=== PATIENT | male | born 1930 | race Caucasian/White ===

== ENCOUNTER 2017-04-06 17:24 | Inpatient (IN) ==
[2017-04-07] MEDS ORDERED: Naloxone 0.4 MG/ML INJ IVP PRN (00:20)
[2017-04-07] MEDS ORDERED: NON-FORMULARY MEDICATION 1 EACH EACH (Albuterol Sulfate [Albuterol Sulfate] 2.5 MG) IH PRN (01:34)
[2017-04-07 01:54] LABS: Basophils % 0.1 %; Hematocrit 41.8 % (37.5-50.1); Hemoglobin 12.9 g/dL (12.9-16.9); Immature Granulocytes % 0.8 % (0-4); Lymphocytes # 0.5 K/mcL (0.6-4.6); Mean Corpuscular HGB Conc 30.9 g/dL (31.6-35.5); Mean Corpuscular Hemoglobin 30.3 pg (28.0-33.3); Mean Corpuscular Volume 98.1 fL (83.0-100.0); Monocytes # 0.5 K/mcL (0.0-1.3); Monocytes % 3.5 %; Neutrophils # 14.1 K/mcL (1.6-8.9); Platelet Count 300 K/mcL (140-400); Red Blood Count 4.26 M/mcL (4.19-5.50); Red Cell Distribution Width 14.4 % (11.5-14.5); Segmented Neutrophils % 92.6 %
[2017-04-07] MEDS ORDERED: Heparin 25,000 UNIT/500 ML D5W 25,000 UNIT/500 ML MLS IVC SCH (02:00)
[2017-04-07] MEDS ORDERED: *HR* Heparin 5,000 UNIT/ML VIAL IVP PRN ×2 (02:07)
[2017-04-07] MEDS ORDERED: *HR* Heparin 5,000 UNIT/ML VIAL IVP ONE (02:07)
[2017-04-07 02:11] LABS: Albumin 3.5 g/dL (3.5-5.0); Albumin/Globulin Ratio 1.1 (1.1-2.2); Bilirubin,Total 0.4 mg/dL (0.2-1.2); Calcium 9.3 mg/dL (8.6-10.8); Globulin 3.3 g/dL (2.4-3.5); Magnesium 2.4 mg/dL (1.6-2.6); Phosphorous 3.6 mg/dL (2.3-4.7); Potassium 5.1 mEq/L (3.5-4.5); Total Protein 6.8 g/dL (6.0-8.3)
[2017-04-07] MEDS: Albuterol 2.5 MG/3 ML NEBULIZER IH PRN (02:22)
[2017-04-07] MEDS ORDERED: Vancomycin 1,500 MG in D5% in Water 250 ML IVPB SCH (03:00)
[2017-04-07] MEDS ORDERED: Vancomycin 1,750 MG in D5% in Water 500 ML IVPB ONE (03:30)
[2017-04-07] MEDS ORDERED: Vancomycin 2,000 MG in D5% in Water 500 ML IVPB ONE (03:30)
[2017-04-07] MEDS ORDERED: 0.9 % Sodium Chloride 500 ML IVC ONE (03:36)
--- NOTE | 2017-04-07 03:37 | Internal Med History&Physical ---
Date of Encounter: 04/07/17 Time of Encounter: 00:30 Assessment and Plan (1) Sepsis Current visit: Yes Status: Acute Assess: Patient presents with unresolved pneumonia. Patient currently meets sepsis criteria based on WBCs of 22.8 and HR of 114 bpm. Paatient reports increasing shortness of breath with exertion within the past 2 days and increasingly productive cough with sputum which is changed in color from yellow to orange. Patient is also tachycardic. Patient was previously treated for pneumonia one week ago after chest x-ray showed a paced sitting in the right perihilar region of his lung. Plan: IV fluids ordered Cefepime and Vancomycin ordered for broad-spectrum infection coverage Continuous cardiac telemetry ordered Lactic acid ordered Monitor patient, vital signs, and SpO2 Qualifiers: Sepsis type: sepsis due to unspecified organism Qualified Code(s): A41.9 - Sepsis, unspecified organism (2) Acute CHF (congestive heart failure) Current visit: Yes Status: Acute Assess: Patient presents with acute heart failure. Patient is currently tachycardic and to get back with lungs diminished bilaterally with expiratory wheezes. Plan: Cardiology consult ordered Echocardiogram ordered Monitor fluid overload status due to patient receiving IV fluids for sepsis. Will administer Lasix if fluid overload occurs and stop IV fluids Monitor patient closely Daily I&O Daily weight Qualifiers: Congestive heart failure type: unspecified congestive heart failure type Qualified Code(s): I50.9 - Heart failure, unspecified (3) COPD with acute exacerbation Current visit: Yes Status: Acute Assess: Patient presents with acute exacerbation of COPD. Plan: BiPap ordered nightly Supplemental O2 ordered with titration if SpO2 <92% Monitor SpO2 and vital signs Albuterol Nebs ordered DuoNebs ordered PRN 60 mg IV SoluMedrol ordered Q6 (4) Community acquired pneumonia Current visit: No Status: Acute Assess: Patient presents with unresolved pneumonia. Patient currently meets sepsis criteria based on WBCs of 22.8 and HR of 114 bpm. Paatient reports increasing shortness of breath with exertion within the past 2 days and increasingly productive cough with sputum which is changed in color from yellow to orange. Patient is also tachycardic. Patient was previously treated for pneumonia one week ago after chest x-ray showed a paced sitting in the right perihilar region of his lung. Plan: IV fluids ordered Cefepime and Vancomycin ordered for broad-spectrum infection coverage Continuous cardiac telemetry ordered Lactic acid ordered Monitor patient, vital signs, and SpO2 (5) NSTEMI (non-ST elevated myocardial infarction) Current visit: Yes Status: Acute Assess: Patient presents with NSTEMI. Plan: Heparin IV drip ordered Cardiology consult ordered Repeat EKG Continuous cardiac telemetry ordered (6) Hyperlipidemia Current visit: Yes Status: Chronic Assess: Patient presents with history of chronic hyperlipidemia. Plan: Continue Lipitor Lipid panel ordered Qualifiers: Hyperlipidemia type: unspecified Qualified Code(s): E78.5 - Hyperlipidemia , unspecified (7) Parkinsons disease Current visit: Yes Status: Chronic Assess: Patient presents with chronic Parkinson's disease. Plan: Continue Carbidopa/Levodopa (8) DVT prophylaxis Current visit: Yes Status: Acute Assess: Patient to receive DVT prophylaxis due to current cardiac symptomatology, bed rest status, and inpatient protocol. Plan: Patient placed on Heparin drip Internal Medicine - H&P: HPI Chief complaint: SOB/Unresolved pneumonia Admitted From: Hospital to Hospital Transfer Plans for Post Hospital Care: Home History of present illness: Mr. Pineda is a 86 year old male who presents from [facility] with chief complaint of increasing shortness of breath with exertion within the past 2 days and increasingly productive cough with sputum which is changed in color from yellow to orange. Patient was previously treated for pneumonia one week ago after chest x-ray showed a paced sitting in the right perihilar region of his lung. He was placed on Zithromax and steroid pack. Patient reports there was no improvement in his symptoms. Patient is also currently symptomatic for acute CHF exacerbation secondary to acute COPD exacerbation. Patient denies chest pain, fever, nausea, vomiting, chills, or syncopal episodes. Patient also reports using CPAP at night sporadically at 2 L at night. Patient has history of COPD, CAD, hyperlipidemia, hypertension, and Parkinson's disease. Patient reports bypass surgery and previous placement of 4 stents. He also reports he is a former smoker and that he has lost 30 pounds over the last 4 months due to reduced appetite. Patient currently meets sepsis criteria based on WBCs 22.8 and heart rate of [address] inpatient status protocol continuous cardiac telemetry; orders were sputum, blood, and urine cultures; cardiology consult placed an order for Echo placed. Orders for d- dimer, trending troponins 2, and heparin drip placed. Patient to receive IV cefepime and vancomycin pharmacy dosing for pneumonia coverage. Patient to be monitored closely. Past Med Surg Social Fam HX - Past Medical History Medical history: arthritis, cancer, CHF, COPD, coronary artery disease, hyperlipidemia, hypertension, kidney stones, myocardial infarction, renal disease, syncope, TIA Psychiatric history: no psych history - Past Surgical History Surgical History: angioplasty/stent, cancer surgery, cataract, coronary bypass ( CABG), LE Bypass, LE stent(s) - Social History Smoking Status: Former smoker Packs per day: 1 PPD Smokeless Tobacco Status: No Alcohol use: none Drug use: none Occupational status: retired Current living situation: Home, With Family Activity Level: Independent ambulation Recent Out of Country Travel Within the Last 8 Weeks: No Exposure or Possible Exposure to Illness During Travel: No - Family History Mother Race: Family Member Ethnicity: Non- Living Status: Age at : 70 Cause of : HD Hx Family Cardiac Disorders: Yes (HD) Father Race: Family Member Ethnicity: Non- Living Status: Age at : 79 Cause of : Complications from Alzheimer's disease Hx Family Neurologic Disorders: Yes (Alzheimer's disease) Brother Race: Family Member Ethnicity: Non- Living Status: Age at : 70 Cause of : HD Hx Family Cardiac Disorders: Yes (HD) Internal Medicine - H&P: Meds Albuterol Sulfate 2.5 mg IH Q4H PRN 04/06/17 [History] Amlodipine Besylate 5 mg PO DAILY 04/06/17 [History] Aspirin 81 mg PO DAILY 04/06/17 [History] Atorvastatin [Lipitor] 40 mg PO HS 04/06/17 [History] Budesonide [Rhinocort Allergy] 1 puff NS BID 04/06/17 [History] Carbidopa/Levodopa [Carbidopa-Levodopa 25-100 Tab] 25 - 100 mg PO QID 04/06/17 [ History] Cholecalciferol (Vitamin D3) [Vitamin D3] 5,000 unit PO DAILY 04/06/17 [History] Ipratropium [place] 2 drop NS BID 04/06/17 [History] Nitroglycerin [Nitrostat] 0.4 mg SL AD 04/06/17 [History] Potassium Citrate [Urocit-K] 10 meq PO QID 05/28/17 [History] Spironolactone [Aldactone] 25 mg PO DAILY 04/06/17 [History] Allopurinol 100 mg PO DAILY 04/07/17 [History] Allergies ciprofloxacin [From Cipro] Allergy (Verified 12/05/15 09:04) Rash fesoterodine [From Toviaz] Allergy (Verified 12/05/15 09:04) Rash ibuprofen Allergy (Verified 12/05/15 09:04) See Comments Iodinated Contrast Media - Oral and Allergy (Verified 12/06/15 15:07) Pt reports he had a heart attack after receiving IV contrast Penicillins [PCN] Allergy (Verified 12/05/15 09:04) Rash Sulfa (Sulfonamide Antibiotics) Allergy (Verified 12/05/15 09:04) Difficulty Swallowing simvastatin Adverse Reaction (Verified 12/05/15 09:04) Gastrointestinal Upset All Systems PM: A 10-system review of systems was performed and is negative for pertinent findings except as documented above in the HPI. - Constitutional Constitutional: as per HPI, weight loss (30 pounds in 4 months) - EENT Eyes: no change in vision, no discharge, no pain, no photophobia Ears: as per HPI, decreased hearing, no ear discharge, no ear pain, no tinnitus Nose, mouth and throat: no dysphagia, no nasal discharge, no neck pain, no sore throat - Breasts Breasts: as per HPI - Cardiovascular Cardiovascular ROS IM: as per HPI, dyspnea, dyspnea on exertion, irregular heart rhythm - Respiratory Respiratory: as per HPI, dyspnea, dyspnea on exertion, chest congestion, change in phlegm color - Gastrointestinal Gastrointestinal: as per HPI, diarrhea - Genitourinary Genitourinary ROS male: as per HPI - Musculoskeletal Musculoskeletal ROS IM: no numbness, no tingling - Integumentary Integumentary IM: no rash, no unusual bruising - Neurological Neurological ROS: no confusion, no convulsions, no focal weakness, no numbness, no tingling, no tremor(s) - Psychiatric Psychiatric: as per HPI, change in appetite - Endocrine Endocrine IM: as per HPI - Hematologic/Lymphatic Hematologic/Lymphatic: no easy bruising - Allergic/Immunologic Allergic/Immunologic: as per HPI - Constitutional Vitals: Temp Pulse Resp BP Pulse Ox 98.9 F 128 24 142/93 95 04/07/17 00:00 04/07/17 00:00 04/07/17 02:22 04/07/17 00:00 04/07/17 02:22 General appearance: Present: cooperative, A&O X 3, pleasant, obese, severe distress (Severe SOB and respiratory distress), answers questions appropriately - Head Head exam: Present: atraumatic, normocephalic - Eye Eye exam: Present: PERRL, conjuntiva pink, sclera anicteric Pupils: Present: PERRL - ENT ENT exam: Present: normal exam, normal external ear exam - Neck Neck exam general surgery: Present: supple, trachea midline. Absent: lymphadenopathy - Respiratory Respiratory exam: Present: accessory muscle use, respiratory distress, wheezes - Cardiovascular Cardiovascular exam: Present: tachycardia - GI/Abdominal GI/Abdominal exam: Present: normal bowel sounds, soft, no peritoneal signs. Absent: distended, tenderness - Rectal Rectal exam: Present: deferred - Additional comments: exam deferred. - Extremities Exam Extremities exam: Present: normal inspection, warm, radial pulses palpable and symetrical. Absent: calf tenderness, cyanotic, pedal edema - Back Exam Back exam: Present: normal inspection - Neurological Exam Neurological exam: Present: CN II-XII intact, oriented X3, no focal deficits. Absent: pronater drift, facial droop, speech deficit - Psychiatric Psychiatric exam: Present: anxious (Anxiety related to SOB) - Skin Skin exam: Present: diaphoretic, intact, normal color Internal Med - H&P Results - Labs CBC & Chem 7: 04/07/17 01:37 04/07/17 01:37 Labs: Short CBC 04/07/17 Range/Units 01:37 WBC 15.3 H (4.3-11.1) K/mcL Hgb 12.9 (12.9-16.9) g/dL Hct 41.8 (37.5-50.1) % Plt Count 300 (140-400) K/mcL Neutrophils # 14.1 H (1.6-8.9) K/mcL BMP 04/07/17 01:37 Sodium 139 Potassium 5.1 H Chloride 105 Carbon Dioxide 22 BUN 39 H Creatinine 1.74 H Glucose 194 H Calcium 9.3 Cardiac Enzymes 04/07/17 Range/Units 01:44 Troponin I 10.37 H* (0-0.03) ng/mL Liver Function 04/07/17 Range/Units 01:37 Total Bilirubin 0.4 (0.2-1.2) mg/dL AST 55 H (5-34) Units/L ALT 13 (0-55) Units/L Alkaline Phosphatase 59 (38-126) Units/L Albumin 3.5 (3.5-5.0) g/dL - EKG Data Rate: tachycardia - EKG Data Prior EKG available for review: yes EKG comments: 04/07/17 03:49 EKG dated 04/06/17 shows sinus tachycardia with marked right axis deviation and intraventricular conduction delay. EKG dated 04/07/17 shows ectopic atrial tachycardia with left atrial enlargement and intraventricular conduction delay. - Diagnostic Studies Other Images Additional comments: Supine view of the abdomen dated 04/06/17 shows: There is a 5 mm calcification projecting over the right kidney, unchanged. No abnormally dilated loops of large or small bowel are present to suggest obstruction. There is only mild amount of stool present. Multilevel degenerative changes are present in the lumbar spine. Overall Impression: Nonobstructed bowel-gas pattern with only small amount of stool present. Chest x-ray Additional comments: 1-View CXR of chest dated 04/06/17 shows: The mediastinal and cardiac contours are stable. There is persistent patchy right perihilar airspace opacity concerning for right perihilar pneumonia. There is no new focal consolidation or pleural effusion. No pneumothorax is identified. Overall Impression: Persistent right perihilar airspace opacity concerning for a perihilar pneumonia. Continued follow-up is recommended to ensure resolution.
[2017-04-07] MEDS ORDERED: 0.9 % Sodium Chloride 1,000 ML IVC SCH (03:45)
--- NOTE | 2017-04-07 03:45 | Event Note ---
Date of Encounter: 04/07/17 Time of Encounter: 03:40 Patient presenting with shortness of breath and cough. Reports left-sided chest pain for the last 2 days. His troponin was elevated. On exam he is in moderate distress due to shortness of breath, appears tachipneic, heart auscultation reveals tachycardic regular S1 and S2. Lungs are diminished bilaterally with expiratory wheezes. Plan: For severe sepsis we will treat him with IV fluids and broad-spectrum IV antibiotics. Source is likely pneumonia. For non-ST elevation WI we will start heparin drip. We will obtain echocardiogram. Consult cardiology. 4 respiratory failure based on hypoxia and tachypnea will use BiPAP. For COPD we will provide inhaled albuterol and ipratropium, IV steroids and antibiotics. The patient is highly unstable and there is high probability of emergent and significant clinical decompensation with potential impairment of organ function including cardiovascular system and respiratory system due to severe sepsis and acute WI. I have spent 40 minutes of critical care time which involved decision making of high complexity to assess, manipulate, and support vital organ system , in order to prevent further life threatening deterioration of the patient's condition. The critical care time was spent in the patient's room or its direct vicinity and was spent obtaining history and examining the patient, reviewing EKGs, imaging studies and laboratory data, ordering medications and laboratory studies, reevaluating for clinical response and making adjustments to ordered medications.
[2017-04-07] MEDS: Cefepime HCl 2,000 MG in D5% in Water (Mini-Bag+) 100 ML IVPB SCH (03:46)
[2017-04-07] MEDS: Ipratropium/Albuterol Neb 3 ML IH SCH ×6 (04:39→23:29)
[2017-04-07] MEDS: Nitroglycerin 0.4 MG TAB.SUBL SL SCH (04:43)
[2017-04-07] MEDS ORDERED: methylPREDNISolone 125 MG/2 ML VIAL IVP SCH (06:00)
[2017-04-07 07:40] LABS: Hematocrit 37.9 % (37.5-50.1); Hemoglobin 12.3 g/dL (12.9-16.9); Mean Corpuscular HGB Conc 32.5 g/dL (31.6-35.5); Mean Corpuscular Volume 95.5 fL (83.0-100.0); Platelet Count 311 K/mcL (140-400); Red Blood Count 3.97 M/mcL (4.19-5.50); Red Cell Distribution Width 14.3 % (11.5-14.5)
[2017-04-07] MEDS ORDERED: Perflutren Lipid Microsphere 1.3 ML in 0.9 % Sodium Chloride 8.7 ML IVP ONE (08:33)
[2017-04-07] MEDS ORDERED: Levofloxacin 750 MG/150 ML 750 MG/150 ML BAG IVPB SCH (09:00)
[2017-04-07] MEDS ORDERED: IPRATROPIUM BROMIDE NS SCH (09:00)
[2017-04-07] MEDS ORDERED: Spironolactone 25 MG TABLET PO SCH (09:00)
[2017-04-07] MEDS ORDERED: amLODIPine 5 MG TABLET PO SCH (09:00)
[2017-04-07] MEDS: Pantoprazole 40 MG VIAL IVP SCH (09:59)
[2017-04-07] MEDS: 0.9 % Sodium Chloride 1,000 ML IVC SCH (10:05)
--- NOTE | 2017-04-07 10:08 | Cardiology Consult Note ---
<Judy Poonra Hough - Last Filed: 04/07/17 10:47> Date of Encounter: 04/07/17 Time of Encounter: 08:30 Assessment and Plan (1) NSTEMI (non-ST elevated myocardial infarction) Current Visit: Yes Status: Acute Troponin 2.46, 10.37, 17.3. Ischemic ECG changes. Typical chest pain symptoms for the past 1+ week. TTE 04/07/17: LVEF 15-20%, severe global hypokinesis with regional variations, mild to moderate MR, mild TR, moderate PH. No prior echo for review. Hx of 3v CABG in 1993, most recent (confirmed) in 2001 with PCI to RCA. Long discussion with patient regarding plan given DNR/DNI. He desires to first discuss with family with regards to LHC. Risks for ANTWAN increased given his CKD, Nephrology consulted. Recommend supportive care for PNA with IV antibiotics and treatment of CHF-- will stop IVF, await Nephrology recommendations for diuresis. Continue medical management for now--continue IV heparin gtt, Stop CCB, start betablocker. No ACEi/ARB due to BRENDAN on CKD. Cardiac rehab not indicated at this time. Will continue to follow closely. (2) Acute CHF (congestive heart failure) Current Visit: Yes Status: Acute Severely reduced systolic function, LVEF 15-20%. Chronicity unclear. No prior records available for review. Mild volume overload upon exam--will stop supplemental IVF. Stop CCB, start Toprol XL. No ACEi/ARB due to CKD. Await Nephrology recommendations on diuresis. Plan as above, patient to discuss with family prior to proceeding with [facility]. Continue medical management for now. Strict I&Os, Na/Fluid restriction diet, daily weights. Qualifiers: Congestive heart failure type: systolic Qualified Code(s): I50.21 - Acute systolic (congestive) heart failure (3) Sepsis Current Visit: Yes Status: Acute Secondary to CAP. WBC 22 upon admission. CXR ([place]): persistent right perihilar airspace opacity consistent with PNA. On IV antibiotics, vanco and ceftin. Primary service following. Qualifiers: Sepsis type: sepsis due to unspecified organism Qualified Code(s): A41.9 - Sepsis, unspecified organism (4) BRENDAN (acute kidney injury) Current Visit: Yes Status: Acute SCr 1.74 today. BRENDAN on CKD. Baseline line SCr 1.3-1.5. Hx of CKD-3, follows with Dr. Watkins. Consulted [facility] for recommendations regarding LHC and diuresis. Discussion w patient/family: The assessment and plan as outlined above was discussed with the patient and/or family members who expressed understanding and agreement. All questions were answered. Thank you for involving us in the care of your patient. Please call with any questions. The patient will be discussed and reviewed with Dr. Irwin; changes to be made accordingly. History of Present Illness Consult date: 04/07/17 Requesting physician: Baldo Javed Consult reason: NSTEMI Chief complaint: Chest pain History of present illness: Mr. Pineda is a 86 year old male with PMH significant for CAD s/p 3v CABG ( 1993) and subsequent PCI, PAD, COPD on home o2, Parkinson's disease, LISETTE, HTN, CKD-3, HLD, and TIA who presented to [place] ED with complaints of worsening shortness of breath and chest discomfort. Initial troponin was 2.46--patient was then transferred to [facility]. He reports he was diagnosed with pneumonia on by PCP--was started on oral steroids and antibiotics; symptoms continued to worsen over the week. Reports 1 week history of chest "tightness" and squeezing associated with dyspnea and diaphoresis; symptoms worsen with minimal exertion and improve with rest/NTG tabs. Also reports frequent, fatigue/ malaise, and productive cough with discolored sputum production. No recent or past cardiac records available for review. He followed with [facility] ([place], [place]) in the past. Last confirmed LHC was in 2001 with PCI to RCA (per stent card). He denies recent cardiac work-up. Past Med Surg Social Fam HX - Past Medical History Medical history: arthritis, cancer, COPD, coronary artery disease, hyperlipidemia, hypertension, kidney stones, myocardial infarction, renal disease, syncope, TIA Psychiatric history: no psych history - Past Surgical History Surgical History: angioplasty/stent, cancer surgery, cataract, coronary bypass ( CABG), LE Bypass, LE stent(s) - Social History Smoking Status: Former smoker Packs per day: 1 PPD Smokeless Tobacco Status: No Alcohol use: none Drug use: none - Family History Mother Race: Family Member Ethnicity: Non- Living Status: Age at : 70 Cause of : HD Hx Family Cardiac Disorders: Yes (HD) Father Race: Family Member Ethnicity: Non- Living Status: Age at : 79 Cause of : Complications from Alzheimer's disease Hx Family Neurologic Disorders: Yes (Alzheimer's disease) Brother Race: Family Member Ethnicity: Non- Living Status: Age at : 70 Cause of : HD Hx Family Cardiac Disorders: Yes (HD) Medications and Allergies Albuterol Sulfate 2.5 mg IH Q4H PRN 04/06/17 [History] Amlodipine Besylate 5 mg PO DAILY 04/06/17 [History] Aspirin 81 mg PO DAILY 04/06/17 [History] Atorvastatin [Lipitor] 40 mg PO HS 04/06/17 [History] Budesonide [Rhinocort Allergy] 1 spray NS BID 04/06/17 [History] Carbidopa/Levodopa [Carbidopa-Levodopa 25-100 Tab] 1 tab PO QID 04/06/17 [ History] Cholecalciferol (Vitamin D3) [Vitamin D3] 5,000 unit PO DAILY 04/06/17 [History] Ipratropium [place] 2 spray NS BID 04/06/17 [History] Nitroglycerin [Nitrostat] 0.4 mg SL AD 04/06/17 [History] Potassium Citrate [Urocit-K] 10 meq PO QID 04/06/17 [History] Spironolactone [Aldactone] 25 mg PO DAILY 04/06/17 [History] Allopurinol [Zyloprim 100 MG] 100 mg PO DAILY 04/07/17 [History] Azithromycin [Azithromycin 6-Tab Pack] 250 mg PO PER PKG DI 04/07/17 [History] Allergies ciprofloxacin [From Cipro] Allergy (Verified 12/05/15 09:04) Rash fesoterodine [From Toviaz] Allergy (Verified 12/05/15 09:04) Rash ibuprofen Allergy (Verified 12/05/15 09:04) See Comments Iodinated Contrast Media - Oral and Allergy (Verified 12/06/15 15:07) Pt reports he had a heart attack after receiving IV contrast Penicillins [PCN] Allergy (Verified 12/05/15 09:04) Rash Sulfa (Sulfonamide Antibiotics) Allergy (Verified 12/05/15 09:04) Difficulty Swallowing simvastatin Adverse Reaction (Verified 12/05/15 09:04) Gastrointestinal Upset All Systems Review: A 10-system review of systems was performed and is negative for pertinent findings except as documented above in the HPI. - Cardiovascular Cardiovascular: as per HPI Physical Examination Vital Signs, Last 4 Hours Temp Pulse Resp BP Pulse Ox 04/07/17 09:57 120/82 04/07/17 07:29 97.3 F L 99 14 116/78 96 General: Conversant, Other (appears chronically ill) HEENT: Atraumatic, Normocephaly Cardiac: Reg Rate and Rhythm (tachycardiac) Lungs: Other (Diminished throughout) Neuro: Alert and responsive Abdomen: Soft Skin: No rashes noted on visualized skin Extremities: Other (mild BLE edema) Results 04/07/17 07:02 04/07/17 01:37 Lab Results 04/07/17 04/07/17 04/07/17 01:37 01:37 01:37 WBC 15.3 H Hgb 12.9 Hct 41.8 Plt Count 300 APTT D-Dimer Sodium 139 Potassium 5.1 H Chloride 105 Carbon Dioxide 22 BUN 39 H Creatinine 1.74 H Glucose 194 H Calcium 9.3 Magnesium 2.4 Total Bilirubin 0.4 AST 55 H ALT 13 Alkaline Phosphatase 59 Troponin I B-Natriuretic Peptide 1500 H 04/07/17 04/07/17 04/07/17 01:44 01:44 01:55 WBC Hgb Hct Plt Count APTT 30.0 D-Dimer 543 H Sodium Potassium Chloride Carbon Dioxide BUN Creatinine Glucose Calcium Magnesium Total Bilirubin AST ALT Alkaline Phosphatase Troponin I 10.37 H* B-Natriuretic Peptide 04/07/17 04/07/17 04/07/17 07:02 07:02 09:46 WBC 15.3 H Hgb 12.3 L Hct 37.9 Plt Count 311 APTT 101.8 H D D-Dimer Sodium Potassium Chloride Carbon Dioxide BUN Creatinine Glucose Calcium Magnesium Total Bilirubin AST ALT Alkaline Phosphatase Troponin I 17.30 H* B-Natriuretic Peptide Active Medications Albuterol Sulfate (Proventil Neb) 2.5 mg IH [id number] PRN; Protocol PRN Reason: Shortness Of Breath/Wheezing Stop: 10/07/17 01:45 Last Admin: 04/07/17 02:22 Dose: 2.5 mg Albuterol/Ipratropium (Duoneb) 3 ml IH [id number] ROBERT PRN Reason: Protocol Stop: 10/07/17 04:01 Last Admin: 04/07/17 07:45 Dose: Not Given Allopurinol (Zyloprim) 100 mg PO DAILY [facility] Stop: 10/07/17 09:01 Amlodipine Besylate (Norvasc) 5 mg PO DAILY ROBERT Stop: 10/07/17 09:01 Atorvastatin Calcium (Lipitor) 40 mg PO HS [facility] Stop: 10/07/17 21:01 Carbidopa/Levodopa (Sinemet) 1 each PO QID ROBERT Stop: 10/07/17 09:01 Fluticasone Propionate (Flonase) 50 mcg NS BID ROBERT Stop: 10/07/17 09:01 Heparin Sodium (Porcine) (Heparin) 4,000 unit IVP Q6HR PRN PRN Reason: SEE COMMENTS Stop: 10/07/17 02:08 Heparin Sodium (Porcine) (Heparin) 2,000 unit IVP Q6H PRN PRN Reason: SEE COMMENTS Stop: 10/07/17 02:08 Heparin Sodium/Dextrose (Heparin 25,000 Unit/500 Ml D5w) 25,000 unit in 500 mls @ 19.996 mls/hr IVC .Q24H ROBERT; 10.58 UNIT/KG/HR PRN Reason: Protocol Stop: 10/07/17 02:01 Last Admin: 04/07/17 03:36 Dose: 10.58 unit/kg/hr, 20 mls/hr Cefepime HCl 2,000 mg/ (Dextrose) 100 mls @ 200 mls/hr IVPB Q24H [facility] Stop: 10/07/17 03:01 Last Admin: 04/07/17 03:46 Dose: 200 mls/hr Vancomycin HCl 1,500 mg/ (Dextrose) 250 mls @ 166.67 mls/hr IVPB Q24H [facility] Stop: 10/08/17 04:01 Sodium Chloride (0.9 % Sodium Chloride) 1,000 mls @ 125 mls/hr IVC .Q8H ROBERT Stop: 04/07/17 19:44 Last Admin: 04/07/17 04:44 Dose: 125 mls/hr Methylprednisolone (Solu-Medrol) 60 mg IVP Q6HR [facility] Stop: 10/07/17 06:01 Last Admin: 04/07/17 08:05 Dose: 60 mg Naloxone HCl (Narcan) 0.4 mg IVP Q2MIN PRN PRN Reason: Opioid Reversal Stop: 10/07/17 00:21 Nitroglycerin (Nitroglycerin) 0.4 mg SL AD [facility] Stop: 10/07/17 01:46 Last Admin: 04/07/17 04:43 Dose: Not Given Ondansetron HCl (Zofran) 4 mg IVP Q8HR PRN PRN Reason: Nausea And Vomiting Stop: 10/07/17 00:21 Pantoprazole Sodium (Protonix) 40 mg IVP DAILY@0730 [facility] Stop: 10/07/17 07:31 Last Admin: 04/07/17 09:59 Dose: 40 mg Vitamin D (Vitamin D) 1,000 unit PO DAILY [facility] Stop: 10/07/17 09:01 - Imaging and Cardiology Chest Xray: report reviewed Echo: pending Other Results: 12 hour tele: avg HR-106 SR. max 4 beats NSVT. - EKG Interpretation EKG results cardiology: personally reviewed Consult Discharge Plan - Plan Additional Instructions: pcp requested Referrals: Mildred Chu MD [Primary Care Provider] - <Nicolasa Iriwn - Last Filed: 04/07/17 13:01> Date of Encounter: 04/07/17 Assessment and Plan Discussion w patient/family: The assessment and plan as outlined above was discussed with the patient and/or family members who expressed understanding and agreement. All questions were answered. Thank you for involving us in the care of your patient. Please call with any questions. History of Present Illness History of present illness: Mr. Pineda is a 86 year old male All Systems Review: A 10-system review of systems was performed and is negative for pertinent findings except as documented above in the HPI. Physical Examination Vital Signs, Last 4 Hours Temp Pulse Resp BP Pulse Ox 04/07/17 10:44 97.3 F L 110 18 124/81 95 04/07/17 09:57 120/82 Results 04/07/17 12:36 04/07/17 01:37 Lab Results 04/07/17 04/07/17 04/07/17 01:37 01:37 01:37 WBC 15.3 H Hgb 12.9 Hct 41.8 Plt Count 300 APTT D-Dimer Sodium 139 Potassium 5.1 H Chloride 105 Carbon Dioxide 22 BUN 39 H Creatinine 1.74 H Glucose 194 H Calcium 9.3 Magnesium 2.4 Total Bilirubin 0.4 AST 55 H ALT 13 Alkaline Phosphatase 59 Troponin I B-Natriuretic Peptide 1500 H 04/07/17 04/07/17 04/07/17 01:44 01:44 01:55 WBC Hgb Hct Plt Count APTT 30.0 D-Dimer 543 H Sodium Potassium Chloride Carbon Dioxide BUN Creatinine Glucose Calcium Magnesium Total Bilirubin AST ALT Alkaline Phosphatase Troponin I 10.37 H* B-Natriuretic Peptide 04/07/17 04/07/17 04/07/17 07:02 07:02 09:46 WBC 15.3 H Hgb 12.3 L Hct 37.9 Plt Count 311 APTT 101.8 H D D-Dimer Sodium Potassium Chloride Carbon Dioxide BUN Creatinine Glucose Calcium Magnesium Total Bilirubin AST ALT Alkaline Phosphatase Troponin I 17.30 H* B-Natriuretic Peptide 04/07/17 12:36 WBC Hgb 13.1 Hct 41.4 Plt Count APTT D-Dimer Sodium Potassium Chloride Carbon Dioxide BUN Creatinine Glucose Calcium Magnesium Total Bilirubin AST ALT Alkaline Phosphatase Troponin I B-Natriuretic Peptide - Attending Attestation I examined this patient and my medical decision-making was reviewed with the EQUIPMENT SERVICES ASSOCIATE/PA/Advanced Practice Nurse/Resident Physician. I agree with the documented findings, disposition and treatment plan. I examined this patient and my medical decision-making was reviewed with the EQUIPMENT SERVICES ASSOCIATE/PA/Advanced Practice Nurse/Resident Physician. I agree with the documented findings, disposition and treatment plan. Mr. Pineda presents with SOB probably multifactorial and in part related to pneumonia that was recently diagnosed and treated as an outpatient. However , his troponin has markedly elevated and echo demonstrates severe reduction of LV systolic function. He does report chest tightness associated with dyspnea. There are nonspecific ECG changes with worsening of QRS duration suggestive of BBB. We discussed these findings with the patient. Ideally would recommend a [facility]. However, he appears alert, mainly appropriate in response but somewhat confused during our conversation and there is concern for a septic picture. I would also appreciate Nephrology's evaluation given presence of CKD. I explained to the patient that he would be at risk for worsened kidney function if we proceed with cath. He would like to discuss this with his daughter's and consider a decision. For now, I agree with anticoagulation. We will stop IVF' s and begin heart failure therapy.
[2017-04-07] MEDS: Fluticasone Propionate Nasal 50 MCG/SPRAY BOTTLE NS SCH ×2 (10:22→20:11)
[2017-04-07] MEDS: Carbidopa/Levodopa 25/100 TABLET PO SCH ×4 (10:22→20:09)
[2017-04-07] MEDS: Cholecalciferol (D-3) 1,000 UNIT TABLET PO SCH (10:22)
--- NOTE | 2017-04-07 10:32 | Internal Med Progress Note ---
<Roman Ferreira - Last Filed: 04/07/17 13:12> Date of Encounter: 04/07/17 Time of Encounter: 08:30 - Assessment and plan (1) Acute respiratory failure with hypoxia Current Visit: Yes Status: Acute Assessment and plan: - Presented with shortness of breath requiring 4L of oxygen compared to occasional 2L home oxygen use, mostly at nighttime with CPAP. - Likely secondary to pneumonia in the setting of COPD but cannot completely exclude underlying pulmonary edema given significant systolic heart failure per echo. - Will obtain ABG for further evaluation. - Does not feel this is COPD exacerbation. Will switch from Solu-Medrol to prednisone while continuing bronchodilators and supplemental oxygen. - Okay to use BiPAP as needed. - Continue IV antibiotics for pneumonia. - Closely monitor with bedside oximetry. (2) Sepsis Current Visit: Yes Status: Acute Assessment and plan: - 2 SIRS criteria (WBC 22.8 & HR 114) with lactic acidosis at 3.3. - Likely secondary to pneumonia. - Was on IV NS but now discontinued given the new finding of acute systolic heart failure with LVEF 15-20%. - Continue IV antibiotics. - Closely monitor. Qualifiers: Sepsis type: sepsis due to unspecified organism Qualified Code(s): A41.9 - Sepsis, unspecified organism (3) NSTEMI (non-ST elevated myocardial infarction) Current Visit: Yes Status: Acute Assessment and plan: - Presented with one-week history of chest pain with elevated troponin (2.46, 10.37, 17.30) and nonspecific EKG changes suggestive of BBB. - Known CAD s/p 3V CABG in 1993 with PCI to RCA in 2001. - ERICK on 04/07/17 found LVEF 15-20% with severe global hypokinesis with regional variations but indeterminate LV diastolic function. - Heparin drip has been discontinued at this time given reported hemoptysis. - Cardiology had long discussion with patient regarding possible cardiac cath. Patient likes to discuss with his family first before making final decision. - Continue medical management including aspirin, beta-eun, statin and nitroglycerin. - Closely monitor with telemetry. (4) Acute CHF (congestive heart failure) Current Visit: Yes Status: Acute Assessment and plan: - ERICK on 04/07/17 found LVEF 15-20% with severe global hypokinesis with regional variations but indeterminate LV diastolic function. - Patient does not appear significantly fluid overloaded at this time. - Cardiology on board and recommends discontinuation of CCB and start Toprol XL. No ACEi/ARB given current BRENDAN on CKD. Appreciate cardiology assistance on CHF management. - Also appreciate nephrology recommendations regarding diuresis. - Discontinue IV fluid for now. - Strict I/O and daily weight. Qualifiers: Congestive heart failure type: systolic Qualified Code(s): I50.21 - Acute systolic (congestive) heart failure (5) Community acquired pneumonia Current Visit: No Status: Acute Assessment and plan: - 2-day history of worsening shortness of breath and cough with occasional yellow/orange sputum production. - CXR on 04/06/17 at [place] ED showed persistent right perihilar airspace opacity concerning of right perihilar pneumonia. - Patient has no clinical improvement while on outpatient azithromycin for a week. The failure to response indicates the need of hospitalization & IV antibiotics. - Sputum culture and blood cultures pending. - Will check urine antigens for Legionella & Strep. pneumoniae. - Continue IV vancomycin (since 04/07) and cefepime (since 04/07) for broad- spectrum coverage. Will de-escalate later based on clinical findings and/or culture results. (6) Acute on chronic renal failure Current Visit: Yes Status: Acute Assessment and plan: - SCr 1.74 & eGFR 37 on admission compared to his baseline (SCr ~1.3 & eGFR ~45) - Likely secondary to sepsis and associated hypovolemia. - Patient of Dr. Watkins and [facility] has been consulted for possible contrast exposure if patient gets cardiac cath. Appreciate nephrology input. - Avoid nephrotoxin. - IV fluid has been held at this time given current systolic heart failure with LVEF 15-20%. - Closely monitor renal function and electrolytes. - Subjective Interval history: This note is NOT for billing purpose. Patient was seen and examined this morning. Patient reports breathing and nonproductive cough better. Patient states having some episodes of diaphoresis but no chest pain/discomfort, syncope, palpitation or worsening edema. Patient denies fever, chills, nausea, vomiting, abdominal pain. Patient reports having some diarrhea prior to admission but his last bowel movement was 2 days ago. - Constitutional Vitals: Temp Pulse Resp BP Pulse Ox 97.3 F L 99 14 120/82 96 04/07/17 07:29 04/07/17 07:29 04/07/17 07:29 04/07/17 09:57 04/07/17 07:29 General appearance: Present: cooperative, A&O X 3, pleasant, obese, severe distress (Severe SOB and respiratory distress), answers questions appropriately - Head Head exam: Present: atraumatic, normocephalic - Eye Eye exam: Present: EOMI, PERRL, conjuntiva pink, sclera anicteric - Neck Neck exam general surgery: Present: supple, trachea midline. Absent: lymphadenopathy - Respiratory Respiratory exam: Present: decreased breath sounds. Absent: accessory muscle use, rales, rhonchi, wheezes - Cardiovascular Cardiovascular exam: Present: +S1, +S2, tachycardia. Absent: diastolic murmur, gallop, rubs, systolic murmur - GI/Abdominal GI/Abdominal exam: Present: normal bowel sounds, soft, no peritoneal signs. Absent: distended, tenderness - Extremities Exam Extremities exam: Present: pedal edema (Mild BLE edema), warm, radial pulses palpable and symetrical. Absent: calf tenderness, cyanotic - Neurological Exam Neurological exam: Present: CN II-XII intact, oriented X3, no focal deficits. Absent: pronater drift, facial droop, speech deficit - Skin Skin exam: Present: dry, intact, warm Internal Medicine: Result - Labs CBC & Chem 7: 04/07/17 12:36 04/07/17 01:37 Labs: Short CBC 04/07/17 04/07/17 Range/Units 01:37 07:02 WBC 15.3 H 15.3 H (4.3-11.1) K/mcL Hgb 12.9 12.3 L (12.9-16.9) g/dL Hct 41.8 37.9 (37.5-50.1) % Plt Count 300 311 (140-400) K/mcL Neutrophils # 14.1 H (1.6-8.9) K/mcL BMP 04/07/17 01:37 Sodium 139 Potassium 5.1 H Chloride 105 Carbon Dioxide 22 BUN 39 H Creatinine 1.74 H Glucose 194 H Calcium 9.3 Cardiac Enzymes 04/07/17 04/07/17 Range/Units 01:44 07:02 Troponin I 10.37 H* 17.30 H* (0-0.03) ng/mL Liver Function 04/07/17 Range/Units 01:37 Total Bilirubin 0.4 (0.2-1.2) mg/dL AST 55 H (5-34) Units/L ALT 13 (0-55) Units/L Alkaline Phosphatase 59 (38-126) Units/L Albumin 3.5 (3.5-5.0) g/dL - ABG Interpretation ABG results: PT/INR, D-dimer D-Dimer 543 ng/mLFEU (0-500) H 04/07/17 01:44 Consult Discharge Plan - Plan Additional Instructions: pcp requested Referrals: Mildred Chu MD [Primary Care Provider] - <Matthias Vaca P - Last Filed: 04/07/17 16:51> Date of Encounter: 04/07/17 - Constitutional Vitals: Temp Pulse Resp BP Pulse Ox 96.1 F L 98 16 118/83 99 04/07/17 15:54 04/07/17 15:54 04/07/17 15:54 04/07/17 15:54 04/07/17 15:54 Internal Medicine: Result - Labs CBC & Chem 7: 04/07/17 12:36 04/07/17 01:37 Labs: Short CBC 04/07/17 04/07/17 04/07/17 Range/Units 01:37 07:02 12:36 WBC 15.3 H 15.3 H (4.3-11.1) K/mcL Hgb 12.9 12.3 L 13.1 (12.9-16.9) g/dL Hct 41.8 37.9 41.4 (37.5-50.1) % Plt Count 300 311 (140-400) K/mcL Neutrophils # 14.1 H (1.6-8.9) K/mcL BMP 04/07/17 01:37 Sodium 139 Potassium 5.1 H Chloride 105 Carbon Dioxide 22 BUN 39 H Creatinine 1.74 H Glucose 194 H Calcium 9.3 Cardiac Enzymes 04/07/17 04/07/17 Range/Units 01:44 07:02 Troponin I 10.37 H* 17.30 H* (0-0.03) ng/mL Liver Function 04/07/17 Range/Units 01:37 Total Bilirubin 0.4 (0.2-1.2) mg/dL AST 55 H (5-34) Units/L ALT 13 (0-55) Units/L Alkaline Phosphatase 59 (38-126) Units/L Albumin 3.5 (3.5-5.0) g/dL - ABG Interpretation ABG results: ABG ABG pH 7.41 pH Units (7.32-7.45) 04/07/17 15:38 ABG pCO2 37 mmHg (35-45) 04/07/17 15:38 ABG pO2 98 mmHg (85-104) 04/07/17 15:38 ABG O2 Saturation 98 % (95-98) 04/07/17 15:38 PT/INR, D-dimer D-Dimer 543 ng/mLFEU (0-500) H 04/07/17 01:44 - Attending Attestation I examined this patient and my medical decision-making was reviewed with the SENIOR MOBILE APPLICATION DEVELOPER/PA/Advanced Practice Nurse/Resident Physician. I agree with the documented findings, disposition and treatment plan as described except to the extent set forth below. 86/M Background history of multiple medical issues, Admitted with non-ST elevation myocardial infarction with severe acute systolic congestive heart failure. 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 Patient was evaluated by cardiology/nephrology and their recommendations appreciated. I had a long discussion with patient's 2 daughters, patient's , patient's stepson and patient's son-in-law. During my discussion with family WANDA Barboza was present. Total duration of discussion/questions and answers with family: 40 minutes. During this discussion I explained them about recommendations from cardiology/ nephrology. I have personally discussed the plan with interventional cardiology before the discussion and relayed his message to family. I have discussed risks, benefits, advantages, disadvantages and alternative options of worsening status and possible interventions. All above discussed again with the patient in the room in front of all family member. Patient/family members came to conclusion that they prefer to keep the current CODE STATUS.
[2017-04-07] MEDS: Metoprolol XL (24 HR) Succ 25 MG TAB.ER.24H PO SCH (11:02)
[2017-04-07 12:45] LABS: Hematocrit 41.4 % (37.5-50.1); Hemoglobin 13.1 g/dL (12.9-16.9)
[2017-04-07] MEDS: Aspirin 81 MG TAB.CHEW PO SCH (13:49)
[2017-04-07 15:47] LABS: ABG Base Excess -0.8 mEq/L (-2.0 to 3.0); ABG HCO3 23.5 mEQ/L (21-27); ABG Oxygen Saturation 98 % (95-98); ABG PCO2 37 mmHg (35-45); ABG PH 7.41 pH Units (7.32-7.45); ABG PO2 98 mmHg (85-104); ABG TCO2 24.6 mEq/L (20-26); Blood Gas FiO2 35 %
--- NOTE | 2017-04-07 16:16 | Nephrology Consult Note ---
Date of Encounter: 04/07/17 Time of Encounter: 14:00 Assessment and Plan (1) BRENDAN (acute kidney injury) Current Visit: Yes Status: Acute Elevated SCr in the setting of respiratory distress with PNA, NSTEMI, CHF, COPD Agree with holding any additional fluids for now No significant evidence of overt fluid overload but given current state, a dose of iv lasix is not unreasonable Agree with holding aldactone for now given hyperkalemia Will start mucomyst for possible LHC soon if stable (2) CKD (chronic kidney disease) stage 3, GFR 30-59 ml/min Current Visit: Yes Status: Acute baseline SCr around 1.2 to 1.4 (3) NSTEMI (non-ST elevated myocardial infarction) Current Visit: Yes Status: Acute WIll hold off on any intervention except on an emergent basis given BRENDAN Will discuss with pt when in better condition to talk (4) Community acquired pneumonia Current Visit: Yes Status: Acute Antibiotics per primary team History of Present Illness - Reason for Consult Consult date: 04/07/17 Acute Kidney Injury, Chronic Kidney Disease Requesting physician: April Poon - History of Present Illness 86 y o male with PMH of HTN, hig chol, CAD s/p CABG, stents and stage 3 CKD well known to me from outpatient management admitted with progressive SOB and chest discomfort as a transfer from [place]. He was noted to have NSTEMI with elevated troponin peaking at 17.3, new CHF with EF around 15-20% along with PNA. Renal consulted as SCr noted elevated at 1.7, baseline typically around 1.2-1.4. Pt seen and examined visibly SOB with biPAP in place. Past Med Surg Social Fam HX - Past Medical History Medical history: arthritis, cancer, COPD, coronary artery disease, hyperlipidemia, hypertension, kidney stones, myocardial infarction, renal disease, syncope, TIA Psychiatric history: no psych history - Past Surgical History Surgical History: angioplasty/stent, cancer surgery, cataract, coronary bypass ( CABG), LE Bypass, LE stent(s) - Social History Smoking Status: Former smoker Packs per day: 1 PPD Smokeless Tobacco Status: No Alcohol use: none Drug use: none - Family History Mother Race: Family Member Ethnicity: Non- Living Status: Age at : 70 Cause of : HD Hx Family Cardiac Disorders: Yes (HD) Father Race: Family Member Ethnicity: Non- Living Status: Age at : 79 Cause of : Complications from Alzheimer's disease Hx Family Neurologic Disorders: Yes (Alzheimer's disease) Brother Race: Family Member Ethnicity: Non- Living Status: Age at : 70 Cause of : HD Hx Family Cardiac Disorders: Yes (HD) Medications and Allergies Albuterol Sulfate 2.5 mg IH Q4H PRN 04/06/17 [History] Amlodipine Besylate 5 mg PO DAILY 04/06/17 [History] Aspirin 81 mg PO DAILY 04/06/17 [History] Atorvastatin [Lipitor] 40 mg PO HS 04/06/17 [History] Budesonide [Rhinocort Allergy] 1 spray NS BID 04/06/17 [History] Carbidopa/Levodopa [Carbidopa-Levodopa 25-100 Tab] 1 tab PO QID 04/06/17 [ History] Cholecalciferol (Vitamin D3) [Vitamin D3] 5,000 unit PO DAILY 04/06/17 [History] Ipratropium [place] 2 spray NS BID 04/06/17 [History] Nitroglycerin [Nitrostat] 0.4 mg SL AD 04/06/17 [History] Potassium Citrate [Urocit-K] 10 meq PO QID 04/06/17 [History] Spironolactone [Aldactone] 25 mg PO DAILY 04/06/17 [History] Allopurinol [Zyloprim 100 MG] 100 mg PO DAILY 04/07/17 [History] Azithromycin [Azithromycin 6-Tab Pack] 250 mg PO PER PKG DI 04/07/17 [History] Allergies ciprofloxacin [From Cipro] Allergy (Verified 12/05/15 09:04) Rash fesoterodine [From Toviaz] Allergy (Verified 12/05/15 09:04) Rash ibuprofen Allergy (Verified 12/05/15 09:04) See Comments Iodinated Contrast- Oral and IV Dye Allergy (Verified 12/06/15 15:07) Pt reports he had a heart attack after receiving IV contrast Penicillins [PCN] Allergy (Verified 12/05/15 09:04) Rash Sulfa (Sulfonamide Antibiotics) Allergy (Verified 12/05/15 09:04) Difficulty Swallowing simvastatin Adverse Reaction (Verified 12/05/15 09:04) Gastrointestinal Upset Review of Systems All Systems: reviewed and no additional remarkable complaints except as stated ( 10 systems reviewed) Exam - Vital Signs Vital signs: Initial Vital Signs Temp Pulse Resp BP Pulse Ox 97.5 F L 115 24 138/86 93 04/06/17 19:35 04/06/17 19:35 04/06/17 19:35 04/06/17 19:35 04/06/17 19:35 Vital Signs - Last 8 Hours Temp Pulse Resp BP Pulse Ox 04/07/17 15:54 96.1 F L 98 16 118/83 99 04/07/17 10:44 97.3 F L 110 18 124/81 95 04/07/17 09:57 120/82 Intake and Output 04/07/17 04/07/17 04/07/17 07:59 15:59 23:59 Intake Total 240 / 240 Output Total 175 / 175 Balance 65 / 65 Intake: Oral 240 / 240 Output: Urine 175 / 175 Other: Meal Lunch Percent of Meal Consumed 85% Weight 94.5 kg Patient Weight 04/07/17 23:59 Weight 94.5 kg - General Appearance General appearance: moderate distress, frail EENT: ATNC, mucous membranes moist Neck: no JVD, supple Respiratory: course breath sounds Cardiology: no edema, normal S1, normal S2 Gastrointestinal: no tenderness, no guarding Integumentary: warm and dry Neurologic: no focal deficit Musculoskeletal: no deformities Psychiatric: mood/affect appropriate, cooperative Results - Lab Results 04/10/17 04:36 04/10/17 04:36 Most recent lab results ABG pH 7.41 pH Units (7.32-7.45) 04/07/17 15:38 ABG pCO2 37 mmHg (35-45) 04/07/17 15:38 ABG pO2 98 mmHg (85-104) 04/07/17 15:38 ABG HCO3 23.5 mEQ/L (21-27) 04/07/17 15:38 ABG O2 Saturation 98 % (95-98) 04/07/17 15:38 Calcium 9.3 mg/dL (8.6-10.8) 04/07/17 01:37 Phosphorus 3.6 mg/dL (2.3-4.7) 04/07/17 01:37 Magnesium 2.4 mg/dL (1.6-2.6) 04/07/17 01:37 Consult Discharge Plan - Plan Additional Instructions: pcp requested Referrals: Mildred Chu MD [Primary Care Provider] -
[2017-04-07] MEDS ORDERED: Furosemide 40 MG/4 ML VIAL IVP ONE (16:27)
[2017-04-07 18:28] LABS: Bilirubin,Urine Negative (Negative); Blood,Urine Negative (Negative); Clarity,Urine Clear (Clear); Color,Urine Yellow (Yellow); Glucose,Urine (UA) Normal (Normal); Ketones,Urine Negative (Negative); Leukocyte Esterase,Urine Negative (Negative); Nitrite,Urine Negative (Negative); Protein,Urine Negative (Neg-Trace); Specific Gravity,Urine 1.024 (1.010-1.025); Urobilinogen,Urine Normal (Normal)
[2017-04-07] MEDS: *HR* Acetylcysteine 20% 600 MG/3 ML ORAL SYRINGE PO SCH (20:13)
[2017-04-07 20:21] LABS: Protein/Creatinine Ratio,Urine 0.13 mg/mg (0-0.20)
[2017-04-08] MEDS: Nitroglycerin 0.4 MG TAB.SUBL SL SCH (01:27)
[2017-04-08] MEDS: Cefepime HCl 2,000 MG in D5% in Water (Mini-Bag+) 100 ML IVPB SCH (03:25)
[2017-04-08] MEDS: Ipratropium/Albuterol Neb 3 ML IH SCH ×6 (03:48→23:56)
[2017-04-08] MEDS: Vancomycin 1,500 MG in D5% in Water 250 ML IVPB SCH (04:12)
[2017-04-08 05:14] LABS: Basophils % 0.1 %; Hematocrit 37.3 % (37.5-50.1); Hemoglobin 11.9 g/dL (12.9-16.9); Lymphocytes % 6.6 %; Mean Corpuscular HGB Conc 31.9 g/dL (31.6-35.5); Mean Corpuscular Hemoglobin 30.6 pg (28.0-33.3); Mean Corpuscular Volume 95.9 fL (83.0-100.0); Monocytes # 1.4 K/mcL (0.0-1.3); Monocytes % 9.4 %; Neutrophils # 12.5 K/mcL (1.6-8.9); Platelet Count 284 K/mcL (140-400); Red Blood Count 3.89 M/mcL (4.19-5.50); Red Cell Distribution Width 14.3 % (11.5-14.5); Segmented Neutrophils % 82.9 %
[2017-04-08 05:38] LABS: Calcium 8.5 mg/dL (8.6-10.8); Potassium 4.2 mEq/L (3.5-4.5)
[2017-04-08] MEDS: Nitroglycerin 0.4 MG TAB.SUBL SL PRN (07:17)
[2017-04-08] MEDS: Pantoprazole 40 MG VIAL IVP SCH (09:31)
[2017-04-08] MEDS: Cholecalciferol (D-3) 1,000 UNIT TABLET PO SCH (09:31)
[2017-04-08] MEDS: Metoprolol XL (24 HR) Succ 25 MG TAB.ER.24H PO SCH (09:31)
[2017-04-08] MEDS: Fluticasone Propionate Nasal 50 MCG/SPRAY BOTTLE NS SCH ×2 (09:31→22:30)
[2017-04-08] MEDS: predniSONE 20 MG TABLET PO SCH (09:31)
[2017-04-08] MEDS: Carbidopa/Levodopa 25/100 TABLET PO SCH ×4 (09:31→22:29)
[2017-04-08] MEDS: Aspirin 81 MG TAB.CHEW PO SCH (09:32)
[2017-04-08] MEDS: *HR* Acetylcysteine 20% 600 MG/3 ML ORAL SYRINGE PO SCH ×2 (11:28→22:30)
--- NOTE | 2017-04-08 11:54 | Cardiology Progress Note ---
Date of Encounter: 04/08/17 Time of Encounter: 11:00 Assessment and Plan (1) NSTEMI (non-ST elevated myocardial infarction) Current Visit: Yes Status: Acute Troponin 2.46, 10.37, 17.3. Ischemic ECG changes. Typical chest pain symptoms x 1 week. No chest pain only with cough and SOB. TTE 04/07/17: LVEF 15-20%, severe global hypokinesis with regional variations, mild to moderate MR, mild TR, moderate PH. No prior echo for review. Hx of 3v CABG in 1993, most recent (confirmed) in 2001 with PCI to RCA. Had long discussion with patient and again regarding risks, benefits, indications, and alternatives of LHC. Nephrology now following and input is appreciated. He is now on mucomyst. Scr near baseline. Patient favors medical management but would like to continue to discuss with family and medical team. Continue medical management. Tolerating beta-eun. Continue asa, statin, and heparin gtt. Palliative care consulted. Will continue to follow closely. (2) Acute CHF (congestive heart failure) Current Visit: Yes Status: Acute Severely reduced systolic function, LVEF 15-20%. Chronicity unclear. No prior records available for review. Mild volume overload upon exam yesterday and IV fluid discontinued. Tolerating toprol XL. No ACEi/ARB due to CKD. Appreciate nephrology input. One dose IV lasix given yesterday. -485ml. No overt fluid overload on exam today. Strict I&Os, Na/Fluid restriction diet, daily weights. Qualifiers: Congestive heart failure type: systolic Qualified Code(s): I50.21 - Acute systolic (congestive) heart failure Discussion w patient/family: The assessment and plan as outlined above was discussed with the patient and/or family members who expressed understanding and agreement. All questions were answered. Thank you for involving us in the care of your patient. Please call with any questions. Subjective Principal diagnosis: NSTEMI Interval history: Patient examinied with and daugter at bedside. Patient confused at times. C /o chest discomfort with cough. Continues to have intermittent SOB. Objective Vital Signs, Last 4 Hours Temp Pulse Resp BP Pulse Ox 04/08/17 11:25 99.3 F 110 16 132/83 97 04/08/17 08:00 95 General: Conversant, No Apparent Distress, Other (Confused at times, plesant) HEENT: Atraumatic, Normocephaly, Mucus Membranes Moist Neck: No JVD, Normal carotid pulses Cardiac: Reg Rate and Rhythm, Normal S1 and S2, No Murmur, Other (Sinus tachycardia) Lungs: Other (Lungs diminished posteriorly) Neuro: Alert and responsive, No focal deficits noted Abdomen: Soft, Non-Tender Skin: No rashes noted on visualized skin Musculoskeletal: No Chest Wall Tenderness Extremities: No Clubbing, No Cyanosis, No Edema, Normal Pulses Results 04/08/17 04:33 04/08/17 04:33 Lab Results 04/07/17 04/08/17 04/08/17 12:36 04:33 04:33 WBC 15.0 H Hgb 13.1 11.9 L Hct 41.4 37.3 L Plt Count 284 Sodium 139 Potassium 4.2 Chloride 104 Carbon Dioxide 24 BUN 43 H Creatinine 1.52 H Glucose 128 H Calcium 8.5 L - VTE Documentation of Mechanical Device: Graduated compression elastic hosiery Consult Discharge Plan - Plan Additional Instructions: pcp requested Referrals: Mildred Chu MD [Primary Care Provider] -
--- NOTE | 2017-04-08 13:11 | Nephrology Progress Note ---
Date of Encounter: 04/08/17 Time of Encounter: 12:30 - Assessment and Plan (1) BRENDAN (acute kidney injury) Current Visit: Yes Status: Acute SCr improving at 1.52, GFR 44 which is great UOP good after iv lasix given Continue to avoid nephrotoxins if possible (2) CKD (chronic kidney disease) stage 3, GFR 30-59 ml/min Current Visit: Yes Status: Acute Baseline SCr noted at 1.2 to 1.4 (3) NSTEMI (non-ST elevated myocardial infarction) Current Visit: Yes Status: Acute pt still deciding on whether to proceed with LHC or not Will start mucomyst in case needed for prophylasix (4) Community acquired pneumonia Current Visit: Yes Status: Acute Continue antibiotics per primary team Subjective Principal diagnosis: NSTEMI Interval history: Pt seen and examined breathing much better. No chest pain. at bedside. Discussed pros and cons of LHC with patient and along with palliative care and primary team. Heparin gtt stopped due to hemoptysis. Objective - Vital Signs Vital signs: Vital Signs Temp Pulse Resp BP Pulse Ox 04/08/17 12:49 20 95 04/08/17 11:25 99.3 F 110 16 132/83 97 04/08/17 08:00 95 04/08/17 07:45 16 95 04/08/17 07:17 98.1 F 105 16 117/78 96 04/08/17 04:11 97.8 F 96 19 114/75 97 04/08/17 04:00 97.5 F L 98 20 113/71 97 04/08/17 03:50 14 98 04/07/17 23:16 97.6 F 97 18 106/70 96 04/07/17 23:15 20 96 04/07/17 19:49 97.5 F L 108 20 116/80 95 04/07/17 19:43 20 94 04/07/17 17:54 98.0 F 04/07/17 15:54 96.1 F L 98 16 118/83 99 04/07/17 15:39 38 97 Intake and Output 04/07/17 04/08/17 04/08/17 23:59 07:59 15:59 Intake Total 589 / 589 100 / 100 0 / 0 Output Total 1300 / 1300 250 / 250 Balance -711 / -711 -150 / -150 0 / 0 Intake: IV Fluids 109 / 109 100 / 100 Heparin 25,000 UNIT/500 9 / 9 ML D5W 25,000 unit In 500 ml @ 10.58 UNIT/KG/HR 19 .996 mls/hr IVC .Q24H [facility] Rx#:[id number] Maxipime 2,000 MG In 100 / 100 100 / 100 Dextrose 5% (Minibag+) 100 ML 100 ML @ 200 mls/ hr IVPB Q24H [facility] Rx#: [id number] Oral 480 / 480 0 / 0 0 / 0 Output: Urine 1300 / 1300 250 / 250 Other: Meal Dinner Lunch Percent of Meal Consumed 90% 0% Stool Size Moderate Stool Consistency formed Stool Color Brown # Bowel Movement Diapers 1 Weight 89 kg Patient Weight 04/08/17 23:59 Weight 89 kg - General Appearance General appearance: Present: frail (NAD) EENT: Present: ATNC, mucous membranes moist Neck: Present: no JVD, supple Additional Comments: improved areation ant bilat Cardiology: Present: no edema, normal S1, normal S2 Gastrointestinal: Present: no tenderness, no guarding Integumentary: Present: no rash, warm and dry Neurologic: Present: no focal deficit Musculoskeletal: Present: no deformities Psychiatric: Present: mood/affect appropriate - Lab 04/10/17 04:36 04/10/17 04:36 Most recent lab results ABG pH 7.41 pH Units (7.32-7.45) 04/07/17 15:38 ABG pCO2 37 mmHg (35-45) 04/07/17 15:38 ABG pO2 98 mmHg (85-104) 04/07/17 15:38 ABG HCO3 23.5 mEQ/L (21-27) 04/07/17 15:38 ABG O2 Saturation 98 % (95-98) 04/07/17 15:38 Calcium 8.5 mg/dL (8.6-10.8) L 04/08/17 04:33 Phosphorus 3.6 mg/dL (2.3-4.7) 04/07/17 01:37 Magnesium 2.4 mg/dL (1.6-2.6) 04/07/17 01:37 Urine Creatinine 112 mg/dL 04/07/17 18:16 Urine Sodium 39.0 mEq/L 04/07/17 18:16 Urine Total Protein 14 mg/dL (1-14) 04/07/17 18:16 - VTE Documentation of Mechanical Device: Graduated compression elastic hosiery Consult Discharge Plan - Plan Additional Instructions: pcp requested Referrals: Mildred Chu MD [Primary Care Provider] -
--- NOTE | 2017-04-08 14:43 | Palliative - Consult Note ---
Date of Encounter: 04/08/17 Time of Encounter: 10:30 - Assessment and Plan (1) Dyspnea Current Visit: Yes Status: Acute Assessment and plan: Supplemental oxygen and BiPAP as needed. Plan for heart cath tomorrow per cardio. Qualifiers: Dyspnea type: unspecified Qualified Code(s): R06.00 - Dyspnea, unspecified (2) Goals of care, counseling/discussion Current Visit: Yes Status: Acute Assessment and plan: Discussed goals of care with patient and his spouse. Code status established as DNR-CCA/DNI. Plan for heart cath tomorrow per cardio. Palliative care will follow from a distance to assist with discharge planning pending results from heart cath. (3) Community acquired pneumonia Current Visit: Yes Status: Acute Assessment and plan: Per hospitalist. (4) NSTEMI (non-ST elevated myocardial infarction) Current Visit: Yes Status: Acute Assessment and plan: Cardiology following (5) CKD (chronic kidney disease) stage 3, GFR 30-59 ml/min Current Visit: Yes Status: Acute Assessment and plan: Nephrology following Palliative-CN HPI - Data of Consult Patient: new to practice Consult date: 04/08/17 Requesting Physician: Matthias Vaca MD Primary Care Provider: Mildred Chu, - Consult Narrative Palliative Care/Comfort Measures: Palliative care Reason for consult: Goals of Care History of present illness: Mr. Pineda is a 86 year old male patient presenting with difficulty in breathing that had progressed over the past 2 days prior to admission. He had previously been treated for pneumonia on an outpatient basis with Zithromax and steroids. His sputum production had changed color and he sought care at the local emergency department. Evaluation revealed community-acquired pneumonia/ leukocytosis (WBC 22.8) and NSTEMI with an initial troponin of 2.46. He was then transferred to [facility] for further workup and treatment. Treatment was continued for pneumonia. His troponin max was 17.3, and EF was 15-20%. Cardiology was consulted to assist with further management. He was placed on heparin drip, but later developed hemoptysis. Mr. Pineda also developed respiratory distress and required short term BiPAP support. Nephrology has been following for acute on chronic kidney injury. The palliative care team was consulted to assist with goals of care. CC: Matthias Vaca MD Past Med Surg Social Fam HX - Past Medical History Source: patient, old records reviewed, obtained from family Medical history: arthritis, cancer, cardiomyopathy, COPD, coronary artery disease (s/p CABG, stents), hyperlipidemia, hypertension, kidney stones, myocardial infarction, renal disease (stage 3 CKD), syncope, TIA, other ( Parkinson Disease, TIA) Psychiatric history: no psych history - Past Surgical History Surgical History: angioplasty/stent, cancer surgery (BCC right leg), cataract, coronary bypass (CABG), LE Bypass, LE stent(s) - Social History Smoking Status: Former smoker Packs per day: 1 PPD Smokeless Tobacco Status: No Alcohol use: none Drug use: none Current living situation: Home, With Family Activity Level: Independent ambulation - Family History Mother Race: Family Member Ethnicity: Non- Living Status: Age at : 70 Cause of : HD Hx Family Cardiac Disorders: Yes (HD) Father Race: Family Member Ethnicity: Non- Living Status: Age at : 79 Cause of : Complications from Alzheimer's disease Hx Family Neurologic Disorders: Yes (Alzheimer's disease) Brother Race: Family Member Ethnicity: Non- Living Status: Age at : 70 Cause of : HD Hx Family Cardiac Disorders: Yes (HD) Medications and Allergies Albuterol Sulfate 2.5 mg IH Q4H PRN 04/06/17 [History] Amlodipine Besylate 5 mg PO DAILY 04/06/17 [History] Aspirin 81 mg PO DAILY 04/06/17 [History] Atorvastatin [Lipitor] 40 mg PO HS 04/06/17 [History] Budesonide [Rhinocort Allergy] 1 spray NS BID 04/06/17 [History] Carbidopa/Levodopa [Carbidopa-Levodopa 25-100 Tab] 1 tab PO QID 04/06/17 [ History] Cholecalciferol (Vitamin D3) [Vitamin D3] 5,000 unit PO DAILY 04/06/17 [History] Ipratropium [place] 2 spray NS BID 04/06/17 [History] Nitroglycerin [Nitrostat] 0.4 mg SL AD 04/06/17 [History] Potassium Citrate [Urocit-K] 10 meq PO QID 04/06/17 [History] Spironolactone [Aldactone] 25 mg PO DAILY 04/06/17 [History] Allopurinol [Zyloprim 100 MG] 100 mg PO DAILY 04/07/17 [History] Azithromycin [Azithromycin 6-Tab Pack] 250 mg PO PER PKG DI 04/07/17 [History] Allergies ciprofloxacin [From Cipro] Allergy (Verified 12/05/15 09:04) Rash fesoterodine [From Toviaz] Allergy (Verified 12/05/15 09:04) Rash ibuprofen Allergy (Verified 12/05/15 09:04) See Comments Iodinated Contrast Media - Oral and Allergy (Verified 12/06/15 15:07) Pt reports he had a heart attack after receiving IV contrast Penicillins [PCN] Allergy (Verified 12/05/15 09:04) Rash Sulfa (Sulfonamide Antibiotics) Allergy (Verified 12/05/15 09:04) Difficulty Swallowing simvastatin Adverse Reaction (Verified 12/05/15 09:04) Gastrointestinal Upset - Constitutional Constitutional ROS PAL: decreased appetite, no weight loss - EENT Eyes: no change in vision Ears: decreased hearing Ears, nose, mouth, throat: no sinus pain, no dysphagia, no sore throat - Cardiovascular Cardiovascular ROS: dyspnea on exertion, leg edema, orthopnea, no chest pain, no irregular heart rhythm - Respiratory Respiratory: cough (Productive with yellow sputum. ), hemoptysis (resolved after heparin gtt stopped), dyspnea on exertion - Gastrointestinal Gastrointestinal: no constipation, no diarrhea, no nausea, no vomiting - Genitourinary Genitourinary ROS male: no difficulty urinating - Musculoskeletal Musculoskeletal ROS IM: muscle weakness - Integumentary ROS Integumentary: other (bruising to upper extremities) - Neurological Neurological ROS: no confusion, no focal weakness, no paresthesias, no weakness - Psychiatric Psychiatric general PM: no anxiety Palliative Care-Exam - Constitutional Vitals: Temp Pulse Resp BP Pulse Ox 99.3 F 110 20 132/83 95 04/08/17 11:25 04/08/17 11:25 04/08/17 12:49 04/08/17 11:25 04/08/17 12:49 General appearance: Present: obese Exam: 86 year old male patient, able to hold conversation and adjust/maneuver in bed without difficulty. Spouse at bedside. - Head Head Exam: Present: atraumatic - Eye Eye exam: Present: EOMI - ENT ENT exam: Present: mucous membranes moist Additional comments: hard of hearing - Respiratory Respiratory exam: Absent: accessory muscle use, respiratory distress Additional comments: Supplemental oxygen via nasal cannula, - Cardiovascular Cardiovascular exam: Present: RRR. Absent: tachycardia - GI/Abdominal Exam GI/Abdominal exam: Present: soft. Absent: firm, tenderness - Rectal Rectal Exam: Present: deferred - Extremities Exam Extremities exam: Present: pedal edema (mild) - Neurological Exam Neurological exam: Present: alert, no focal deficits, strengths equal and symetr throughout Internal Medicine - CN: Reslt - Labs CBC & Chem 7: 04/08/17 04:33 04/08/17 04:33 Labs: Short CBC 04/08/17 Range/Units 04:33 WBC 15.0 H (4.3-11.1) K/mcL Hgb 11.9 L (12.9-16.9) g/dL Hct 37.3 L (37.5-50.1) % Plt Count 284 (140-400) K/mcL Neutrophils # 12.5 H (1.6-8.9) K/mcL BMP 04/08/17 04:33 Sodium 139 Potassium 4.2 Chloride 104 Carbon Dioxide 24 BUN 43 H Creatinine 1.52 H Glucose 128 H Calcium 8.5 L Urine 04/07/17 Range/Units 18:16 Urine Color Yellow (Yellow) Urine Clarity Clear (Clear) Urine pH 6.0 (5.0-8.0) pH Units Ur Specific Lavinia 1.024 (1.010-1.025) Urine Protein Negative (Neg-Trace) mg/dL Urine Glucose (UA) Normal (Normal) mg/dL - ABG Interpretation ABG results: ABG ABG pH 7.41 pH Units (7.32-7.45) 04/07/17 15:38 ABG pCO2 37 mmHg (35-45) 04/07/17 15:38 ABG pO2 98 mmHg (85-104) 04/07/17 15:38 ABG O2 Saturation 98 % (95-98) 04/07/17 15:38 PT/INR, D-dimer D-Dimer 543 ng/mLFEU (0-500) H 04/07/17 01:44 Consult Discharge Plan - Plan Additional Instructions: pcp requested Referrals: Mildred Chu MD [Primary Care Provider] - Palliative Quality Palliative Quality: Screen for Code Status: Yes, Screen for Goals of Care: Yes, Screen for Pain: Yes, If Pain Regimen Started, Initiate Bowel Regimen: NA, Screen for Nausea/Vomitting: Yes Code Status: 04/07/17 00:20 Resuscitation Status: Active [RES] Routine Comment: Resuscitation Status: [id number]
--- NOTE | 2017-04-08 15:55 | Internal Med Progress Note ---
<Tenzin Christianson - Last Filed: 04/08/17 16:29> Date of Encounter: 04/08/17 Time of Encounter: 15:53 - Assessment and plan (1) NSTEMI (non-ST elevated myocardial infarction) Current Visit: Yes Status: Acute Assessment and plan: 86 y/o male presented to [facility] with sob. Patient states he has worsening sob, productive sputum of two days, and one week of chest pain. Patient had elevated troponin trending up with highest being 17.30. Cardiac hx: - Known CAD s/p 3V CABG in 1993 with PCI to RCA in 2001. - ERICK on 04/07/17 found LVEF 15-20% with severe global hypokinesis with regional variations but indeterminate LV diastolic function. Patient Heparin drip was d/c as he reported hemoptysis. - Cardiology had long discussion with patient regarding possible cardiac cath. Patient knows risks and benefits of the procedure. Patient has decided to undergo LHC vs medical management and LHC is planned for tomorrow. -Nephrology states cramer Scr trending down and patient will be able to tolerate procedure. - Continue medical management including aspirin, beta-eun, statin and nitroglycerin. - Closely monitor with telemetry. (2) Sepsis Current Visit: Yes Status: Acute Assessment and plan: Patient meets 2 SIRS criteria (WBC 22.8 & HR 114) with lactic acidosis at 3.3. - Likely secondary to pneumonia. - WBC trending down now 15. -IVF d/c as patient has systolic HF with EF of 15-20% -continue antibiotics. -afebrile, but still tachycardic. Qualifiers: Sepsis type: sepsis due to unspecified organism Qualified Code(s): A41.9 - Sepsis, unspecified organism (3) Community acquired pneumonia Current Visit: Yes Status: Acute Assessment and plan: Patient had 2-day history of worsening shortness of breath and cough with occasional yellow/orange sputum production. - CXR on 04/06/17 at [place] ED showed persistent right perihilar airspace opacity concerning of right perihilar pneumonia. - Patient has no clinical improvement while on outpatient azithromycin for a week. The failure to response indicates the need of hospitalization & IV antibiotics. Sputum culture and urine antigens for Legionella & Strep. pneumoniae negative. blood culture negative prelimenarily. - Continue IV vancomycin (since 04/07) and cefepime (since 04/07) for broad- spectrum coverage. Will de-escalate tomorrow if blood culture continues to be negative. (4) Acute respiratory failure with hypoxia Current Visit: Yes Status: Acute Assessment and plan: 2nd to CAP complicated by systolic heart failure. Patient is currently on 4L O2 an increase from 2L at home and uses CPAP at night. Presented with shortness of breath requiring 4L of oxygen compared to occasional 2L home oxygen use, mostly at nighttime with CPAP. - Likely secondary to pneumonia in the setting of COPD but cannot completely exclude underlying pulmonary edema given significant systolic heart failure per echo. -ABG shows pH 7.42 with pCO2 31 and PO2 98. -continue prednisone., broncodialators and supplental O2. -continue antibiotics. (5) Acute on chronic renal failure Current Visit: Yes Status: Acute Assessment and plan: - SCr 1.74 & eGFR 37 on admission compared to his baseline (SCr ~1.3 & eGFR ~45) -imrpoved to 1.52 - Likely secondary to sepsis and associated hypovolemia. - Patient of Dr. Watkins and [place] nephrology: states patients Scr returning to baseline and can undergo LHC. - Avoid nephrotoxin. - IV fluid has been held at this time given current systolic heart failure with LVEF 15-20%. - Closely monitor renal function and electrolytes. (6) Acute CHF (congestive heart failure) Current Visit: Yes Status: Acute Assessment and plan: - ERICK on 04/07/17 found LVEF 15-20% with severe global hypokinesis with regional variations but indeterminate LV diastolic function. - Patient does not appear significantly fluid overloaded at this time. - Cardiology on board and recommends discontinuation of CCB and start Toprol XL. No ACEi/ARB given current BRENDAN on CKD. Appreciate cardiology assistance on CHF management. - Also appreciate nephrology recommendations regarding diuresis. - Discontinue IV fluid for now. - Strict I/O and daily weight. Qualifiers: Congestive heart failure type: systolic Qualified Code(s): I50.21 - Acute systolic (congestive) heart failure - Subjective Interval history: Patient had CP this morning which was relieved by nitroglycerin. He nausea, diaphoresis ,dizziness, sob during my visit with him today. - Constitutional Vitals: Temp Pulse Resp BP Pulse Ox 98 F 104 16 115/77 96 04/08/17 15:10 04/08/17 15:10 04/08/17 15:10 04/08/17 15:10 04/08/17 15:10 General appearance: Present: cooperative, A&O X 3, pleasant, obese, severe distress (Severe SOB and respiratory distress), answers questions appropriately - Neck Neck exam general surgery: Present: supple, trachea midline. Absent: lymphadenopathy - Respiratory Respiratory exam: Present: CTAB. Absent: accessory muscle use, rales, rhonchi, wheezes - Cardiovascular Cardiovascular exam: Present: +S1, +S2, tachycardia - GI/Abdominal GI/Abdominal exam: Present: normal bowel sounds, soft, no peritoneal signs. Absent: distended, tenderness - Extremities Exam Extremities exam: Present: warm, radial pulses palpable and symetrical. Absent : calf tenderness, cyanotic, pedal edema - Skin Skin exam: Present: dry, intact Internal Medicine: Result - Labs CBC & Chem 7: 04/08/17 04:33 04/08/17 04:33 Labs: Short CBC 04/08/17 Range/Units 04:33 WBC 15.0 H (4.3-11.1) K/mcL Hgb 11.9 L (12.9-16.9) g/dL Hct 37.3 L (37.5-50.1) % Plt Count 284 (140-400) K/mcL Neutrophils # 12.5 H (1.6-8.9) K/mcL BMP 04/08/17 04:33 Sodium 139 Potassium 4.2 Chloride 104 Carbon Dioxide 24 BUN 43 H Creatinine 1.52 H Glucose 128 H Calcium 8.5 L Urine 04/07/17 Range/Units 18:16 Urine Color Yellow (Yellow) Urine Clarity Clear (Clear) Urine pH 6.0 (5.0-8.0) pH Units Ur Specific [place] 1.024 (1.010-1.025) Urine Protein Negative (Neg-Trace) mg/dL Urine Glucose (UA) Normal (Normal) mg/dL - ABG Interpretation ABG results: ABG ABG pH 7.41 pH Units (7.32-7.45) 04/07/17 15:38 ABG pCO2 37 mmHg (35-45) 04/07/17 15:38 ABG pO2 98 mmHg (85-104) 04/07/17 15:38 ABG O2 Saturation 98 % (95-98) 04/07/17 15:38 PT/INR, D-dimer D-Dimer 543 ng/mLFEU (0-500) H 04/07/17 01:44 - VTE Documentation of Mechanical Device: Graduated compression elastic hosiery Consult Discharge Plan - Plan Additional Instructions: pcp requested Referrals: Mildred Chu MD [Primary Care Provider] - <Matthias Vaca P - Last Filed: 04/08/17 17:17> Date of Encounter: 04/08/17 - Constitutional Vitals: Temp Pulse Resp BP Pulse Ox 98 F 104 15 115/77 95 04/08/17 15:10 04/08/17 15:10 04/08/17 16:25 04/08/17 15:10 04/08/17 16:25 Internal Medicine: Result - Labs CBC & Chem 7: 04/08/17 04:33 04/08/17 04:33 Labs: Short CBC 04/08/17 Range/Units 04:33 WBC 15.0 H (4.3-11.1) K/mcL Hgb 11.9 L (12.9-16.9) g/dL Hct 37.3 L (37.5-50.1) % Plt Count 284 (140-400) K/mcL Neutrophils # 12.5 H (1.6-8.9) K/mcL BMP 04/08/17 04:33 Sodium 139 Potassium 4.2 Chloride 104 Carbon Dioxide 24 BUN 43 H Creatinine 1.52 H Glucose 128 H Calcium 8.5 L Urine 04/07/17 Range/Units 18:16 Urine Color Yellow (Yellow) Urine Clarity Clear (Clear) Urine pH 6.0 (5.0-8.0) pH Units Ur Specific [place] 1.024 (1.010-1.025) Urine Protein Negative (Neg-Trace) mg/dL Urine Glucose (UA) Normal (Normal) mg/dL - ABG Interpretation ABG results: ABG ABG pH 7.41 pH Units (7.32-7.45) 04/07/17 15:38 ABG pCO2 37 mmHg (35-45) 04/07/17 15:38 ABG pO2 98 mmHg (85-104) 04/07/17 15:38 ABG O2 Saturation 98 % (95-98) 04/07/17 15:38 PT/INR, D-dimer D-Dimer 543 ng/mLFEU (0-500) H 04/07/17 01:44 - Attending Attestation I examined this patient and my medical decision-making was reviewed with the DATABASE MODELER/PA/Advanced Practice Nurse/Resident Physician. I agree with the documented findings, disposition and treatment plan as described except to the extent set forth below. Spoke with patient's daughter, son-in-law and his stepson's for almost 20 minutes. Charge nurse Leonor was present with me during this conversation. Apparently patient and his change their mind and refer to go for a invasive procedure like cardiac catheterization Cardiology on the board and decision relayed to cardiology Nothing by mouth from midnight Cardiac cath tomorrow
--- NOTE | 2017-04-08 18:13 | Electrocardiograph Report ---
[place] [id number] Test Date: 2017-04-07 Pat Name: Jim Pineda Department: 111 Room: [facility] Gender: M Executive Vice President And Chief Financial Officer: [facility] : 1930 Requested By: Dequan Tucker Order Number: [id number] Reading MD: Mary Marie Measurements Intervals [place] Rate: 107 P: 134 [place]: 208 QRS: 37 QRSD: 154 T: 113 QT: 404 QTc: 466 Interpretive Statements ECTOPIC ATRIAL TACHYCARDIA LEFT ATRIAL ENLARGEMENT INTRAVENTRICULAR CONDUCTION DELAY Electronically Signed On 04-08-2017 18:11:40 EDT by Mary Marie
[2017-04-08] MEDS ORDERED: Melatonin 3 MG TABLET PO PRN (19:22)
[2017-04-09] MEDS: Cefepime HCl 2,000 MG in D5% in Water (Mini-Bag+) 100 ML IVPB SCH (03:29)
[2017-04-09 04:01] LABS: Basophils % 0.1 %; Eosinophils % 0.1 %; Hematocrit 35.7 % (37.5-50.1); Hemoglobin 11.7 g/dL (12.9-16.9); Immature Granulocytes % 0.8 % (0-4); Lymphocytes # 1.3 K/mcL (0.6-4.6); Lymphocytes % 9.8 %; Mean Corpuscular HGB Conc 32.8 g/dL (31.6-35.5); Mean Corpuscular Hemoglobin 31.4 pg (28.0-33.3); Mean Corpuscular Volume 95.7 fL (83.0-100.0); Monocytes # 1.2 K/mcL (0.0-1.3); Monocytes % 9.4 %; Neutrophils # 10.3 K/mcL (1.6-8.9); Platelet Count 285 K/mcL (140-400); Red Blood Count 3.73 M/mcL (4.19-5.50); Segmented Neutrophils % 79.8 %
[2017-04-09 04:14] LABS: BUN/Creatinine Ratio 31 (6-26); Blood Urea Nitrogen 40 mg/dL (8-26); Calcium 8.8 mg/dL (8.6-10.8); Carbon Dioxide 26 mEq/L (19-29); Chloride 108 mEq/L (98-109); Glucose 102 mg/dL (70-99); Osmolality,Calculated 304 (280-300); Potassium 4.2 mEq/L (3.5-4.5); Sodium 142 mEq/L (136-145); eGFR For African Americans > 60 (> 60); eGFR For Non-African Americans 53 (> 60)
[2017-04-09] MEDS: Ipratropium/Albuterol Neb 3 ML IH SCH ×5 (04:24→20:28)
[2017-04-09] MEDS: Vancomycin 1,500 MG in D5% in Water 250 ML IVPB SCH (05:34)
[2017-04-09] MEDS ORDERED: Aminoglycoside Consult 1 EACH MC ONE (07:32)
[2017-04-09 08:30] LABS: INR 1.1; Prothrombin Time 11.9 Seconds (9.4-12.1)
[2017-04-09] MEDS: Cholecalciferol (D-3) 1,000 UNIT TABLET PO SCH (08:35)
[2017-04-09] MEDS: Carbidopa/Levodopa 25/100 TABLET PO SCH ×4 (08:35→21:20)
[2017-04-09] MEDS: Aspirin 81 MG TAB.CHEW PO SCH (08:35)
[2017-04-09] MEDS: predniSONE 20 MG TABLET PO SCH (08:35)
[2017-04-09] MEDS: Pantoprazole 40 MG VIAL IVP SCH (08:35)
[2017-04-09] MEDS: Metoprolol XL (24 HR) Succ 25 MG TAB.ER.24H PO SCH (08:35)
[2017-04-09] MEDS: Fluticasone Propionate Nasal 50 MCG/SPRAY BOTTLE NS SCH ×2 (08:42→21:25)
[2017-04-09] MEDS: *HR* Acetylcysteine 20% 600 MG/3 ML ORAL SYRINGE PO SCH ×2 (09:01→21:27)
--- NOTE | 2017-04-09 10:35 | Event Note ---
Date of Encounter: 04/09/17 Time of Encounter: 10:31 - Cardiology Event Note Planning for [facility] today as discussed. Creatinine improved. Hgb stable. C/o cough overnight and feeling chilled. He was not on c-pap last night. Wears c-pap at home. Nurse notified to have patient wear c-pap at night. Patient layed flat for 15 min and spo2 remained above 92%. No distress noted. Denies questions.
[2017-04-09] MEDS ORDERED: Heparin 1,000 UNITS/500 mL NS 500 ML ONE (11:38)
[2017-04-09] MEDS ORDERED: Nitroglycerin 1,000 MCG/10 ML VIAL IV ONE (11:38)
[2017-04-09] MEDS ORDERED: 0.9 % Sodium Chloride 1,000 ML ONE ×2 (11:38→12:48)
[2017-04-09] MEDS ORDERED: *HR* Heparin 10,000 UNIT/10 ML VIAL ONE (11:38)
--- NOTE | 2017-04-09 11:47 | Internal Med Progress Note ---
<Matthias Vaca - Last Filed: 04/09/17 14:28> Date of Encounter: 04/09/17 - Constitutional Vitals: Temp Pulse Resp BP Pulse Ox 97.8 F 102 16 130/80 95 04/09/17 11:46 04/09/17 11:46 04/09/17 11:46 04/09/17 11:46 04/09/17 11:46 Internal Medicine: Result - Labs CBC & Chem 7: 04/09/17 02:57 04/09/17 02:57 Labs: Short CBC 04/09/17 Range/Units 02:57 WBC 12.9 H (4.3-11.1) K/mcL Hgb 11.7 L (12.9-16.9) g/dL Hct 35.7 L (37.5-50.1) % Plt Count 285 (140-400) K/mcL Neutrophils # 10.3 H (1.6-8.9) K/mcL BMP 04/09/17 02:57 Sodium 142 Potassium 4.2 Chloride 108 Carbon Dioxide 26 BUN 40 H Creatinine 1.28 H Glucose 102 H Calcium 8.8 - ABG Interpretation ABG results: ABG ABG pH 7.41 pH Units (7.32-7.45) 04/07/17 15:38 ABG pCO2 37 mmHg (35-45) 04/07/17 15:38 ABG pO2 98 mmHg (85-104) 04/07/17 15:38 ABG O2 Saturation 98 % (95-98) 04/07/17 15:38 PT/INR, D-dimer PT 11.9 Seconds (9.4-12.1) 04/09/17 08:14 D-Dimer 543 ng/mLFEU (0-500) H 04/07/17 01:44 Consult Discharge Plan - Plan Additional Instructions: pcp requested Referrals: Mildred Chu MD [Primary Care Provider] - - Attending Attestation I examined this patient and my medical decision-making was reviewed with the NATURAL RESOURCES INSTRUCTOR/PA/Advanced Practice Nurse/Resident Physician. I agree with the documented findings, disposition and treatment plan as described except to the extent set forth below. noted that patient is scheduled for cath today will await for cardiology recommendations <Tenzin Christianson - Last Filed: 04/09/17 17:23> Date of Encounter: 04/09/17 Time of Encounter: 17:16 - Assessment and plan (1) NSTEMI (non-ST elevated myocardial infarction) Current Visit: Yes Status: Acute Assessment and plan: 86 y/o male presented to [facility] with sob. Patient states he has worsening sob, productive sputum of two days, and one week of chest pain. Patient had elevated troponin trending up with highest being 17.30. Cardiac hx: - Known CAD s/p 3V CABG in 1993 with PCI to RCA in 2001. - ERICK on 04/07/17 found LVEF 15-20% with severe global hypokinesis with regional variations but indeterminate LV diastolic function. Underwent Cardiac catheterization Found: "severe three vessel coronary artery disease S/P CABG 1 of 2 patent bypass grafts Severe left main-proximal and mid LAD stenosis (90%) as well as SVG OM" Cardiology recommends: medical theraphy and consider high risk PCI left main: LAD and SVG OM (2) Community acquired pneumonia Current Visit: Yes Status: Acute Assessment and plan: Patient had 2-day history of worsening shortness of breath and cough with occasional yellow/orange sputum production. - CXR on 04/06/17 at [place] ED showed persistent right perihilar airspace opacity concerning of right perihilar pneumonia. - Patient has no clinical improvement while on outpatient azithromycin for a week. The failure to response indicates the need of hospitalization & IV antibiotics. Sputum culture and urine antigens for Legionella & Strep. pneumoniae negative. blood culture negative prelimenarily. - Continue cefepime (since 04/07) for broad-spectrum coverage and d/c vancomycin. Will de-escalate tomorrow if blood culture continues to be negative. (3) Sepsis Current Visit: Yes Status: Resolved Assessment and plan: Patient meets 2 SIRS criteria (WBC 22.8 & HR 114) with lactic acidosis at 3.3. - Likely secondary to pneumonia. - WBC trending down now 12.5 -IVF d/c as patient has systolic HF with EF of 15-20% -continue antibiotics. -afebrile, but still tachycardic. Qualifiers: Sepsis type: sepsis due to unspecified organism Qualified Code(s): A41.9 - Sepsis, unspecified organism (4) Acute respiratory failure with hypoxia Current Visit: Yes Status: Acute Assessment and plan: 2nd to CAP complicated by systolic heart failure. Patient is currently on 4L O2 an increase from 2L at home and uses CPAP at night. Presented with shortness of breath requiring 4L of oxygen compared to occasional 2L home oxygen use, mostly at nighttime with CPAP. - Likely secondary to pneumonia in the setting of COPD but cannot completely exclude underlying pulmonary edema given significant systolic heart failure per echo. -ABG shows pH 7.42 with pCO2 31 and PO2 98. -continue prednisone., broncodialators and supplental O2. -continue antibiotics. (5) Acute on chronic renal failure Current Visit: Yes Status: Resolved Assessment and plan: - SCr 1.74 & eGFR 37 on admission compared to his baseline (SCr ~1.3 & eGFR ~45) -imrpoved to 1.28. Resolved. - Likely secondary to sepsis and associated hypovolemia. - Patient of Dr. Greer nephrology: states patients Scr returning to baseline and can undergo LHC. - Avoid nephrotoxin. - IV fluid has been held at this time given current systolic heart failure with LVEF 15-20%. - Closely monitor renal function and electrolytes. (6) Acute CHF (congestive heart failure) Current Visit: Yes Status: Acute Assessment and plan: - ERICK on 04/07/17 found LVEF 15-20% with severe global hypokinesis with regional variations but indeterminate LV diastolic function. - Patient does not appear significantly fluid overloaded at this time. - Cardiology on board and recommends discontinuation of CCB and start Toprol XL. No ACEi/ARB given current BRENDAN on CKD. Appreciate cardiology assistance on CHF management. - Also appreciate nephrology recommendations regarding diuresis. - Discontinue IV fluid for now. - Strict I/O and daily weight. Qualifiers: Congestive heart failure type: systolic Qualified Code(s): I50.21 - Acute systolic (congestive) heart failure - Subjective Interval history: Patient had CP this morning which was relieved by nitroglycerin. He nausea, diaphoresis ,dizziness, sob during my visit with him today. - Constitutional Vitals: Temp Pulse Resp BP Pulse Ox 97.9 F 102 16 115/77 92 04/09/17 07:54 04/09/17 07:54 04/09/17 10:57 04/09/17 07:54 04/09/17 10:57 General appearance: Present: cooperative, A&O X 3, pleasant, obese, severe distress (Severe SOB and respiratory distress), answers questions appropriately - Respiratory Respiratory exam: Present: CTAB. Absent: accessory muscle use, rales, rhonchi, wheezes - Cardiovascular Cardiovascular exam: Present: RRR, +S1, +S2. Absent: diastolic murmur, gallop, rubs, systolic murmur - GI/Abdominal GI/Abdominal exam: Present: normal bowel sounds, soft, no peritoneal signs. Absent: distended, tenderness - Extremities Exam Extremities exam: Present: warm, radial pulses palpable and symetrical. Absent : calf tenderness, cyanotic, pedal edema Internal Medicine: Result - Labs CBC & Chem 7: 04/09/17 02:57 04/09/17 02:57 Labs: Short CBC 04/09/17 Range/Units 02:57 WBC 12.9 H (4.3-11.1) K/mcL Hgb 11.7 L (12.9-16.9) g/dL Hct 35.7 L (37.5-50.1) % Plt Count 285 (140-400) K/mcL Neutrophils # 10.3 H (1.6-8.9) K/mcL BMP 04/09/17 02:57 Sodium 142 Potassium 4.2 Chloride 108 Carbon Dioxide 26 BUN 40 H Creatinine 1.28 H Glucose 102 H Calcium 8.8 - ABG Interpretation ABG results: ABG ABG pH 7.41 pH Units (7.32-7.45) 04/07/17 15:38 ABG pCO2 37 mmHg (35-45) 04/07/17 15:38 ABG pO2 98 mmHg (85-104) 04/07/17 15:38 ABG O2 Saturation 98 % (95-98) 04/07/17 15:38 PT/INR, D-dimer PT 11.9 Seconds (9.4-12.1) 04/09/17 08:14 D-Dimer 543 ng/mLFEU (0-500) H 04/07/17 01:44 - VTE Documentation of Mechanical Device: Graduated compression elastic hosiery
[2017-04-09] MEDS ORDERED: *HR* FentaNYL (PF) 100 MCG/2 ML VIAL ONE (12:56)
[2017-04-09] MEDS ORDERED: *HR* Midazolam HCl 2 MG/2 ML VIAL ONE (12:56)
--- NOTE | 2017-04-09 12:59 | Electrocardiograph Report ---
[address] [place], [place] [address] Test Date: 2017-04-08 Pat Name: Jim Pineda Department: 111 Room: 2NE19 Gender: M Bonderizer: BRIAN : 1930 Requested By: Matthias Vaca Order Number: [id number] Reading MD: Eren Martins MD Measurements Intervals [place] Rate: 102 P: 55 [place]: 181 QRS: -76 QRSD: 134 T: 132 QT: 367 QTc: 426 Interpretive Statements SINUS TACHYCARDIA INTRAVENTRICULAR CONDUCTION DELAY INFERIOR MYOCARDIAL INFARCTION, OF INDETERMINATE AGE ANTEROLATERAL MYOCARDIAL INFARCTION, PROBABLY RECENT Electronically Signed On 04-09-2017 12:57:25 EDT by Eren Martins MD
--- NOTE | 2017-04-09 13:09 | Pre-Sedation Evaluation ---
Pre-sedation evaluation - Pre-sedation checklist Date of procedure: 04/09/17 Procedure: c Recent Vitals: Last Vital Signs Temp 97.8 F 04/09/17 11:46 Pulse 102 04/09/17 11:46 Resp 16 04/09/17 11:46 BP 130/80 04/09/17 11:46 Pulse Ox 95 04/09/17 11:46 H&P (including ROS) documented in medical record: Yes Previous reaction to sedatives/anesthetics: No Dietary Status: NPO after Midnight ASA Classification *see protocol: CLASS II-Mild systemic disease Plan of Care: Pt appropriate candidate for procedure/moderate/conscious sedation , Risks/benefits of procedure/sedation discussed w/ patient/family
--- NOTE | 2017-04-09 13:24 | Nephrology Progress Note ---
Date of Encounter: 04/09/17 Time of Encounter: 11:45 - Assessment and Plan (1) BRENDAN (acute kidney injury) Current Visit: Yes Status: Acute Scr improved back to baseline at 1.28, GFR 52 UOP good Continue to avoid nephrotoxins if possible Continue mucomyst for now if [facility] planned (2) CKD (chronic kidney disease) stage 3, GFR 30-59 ml/min Current Visit: Yes Status: Acute (3) NSTEMI (non-ST elevated myocardial infarction) Current Visit: Yes Status: Acute Per cardiology (4) Community acquired pneumonia Current Visit: Yes Status: Acute antibiotics per primary team Subjective Principal diagnosis: NSTEMI Interval history: Pt seen and examined with at bedside, feeling much better with less SOB overall. No chest pain. Objective - Vital Signs Vital signs: Vital Signs Temp Pulse Resp BP Pulse Ox 04/09/17 11:46 97.8 F 102 16 130/80 95 04/09/17 10:57 16 92 04/09/17 08:00 95 04/09/17 07:54 97.9 F 102 16 115/77 95 04/09/17 07:44 18 97 04/09/17 03:36 87 20 119/70 95 04/09/17 03:06 98.0 F 102 123/84 94 04/08/17 23:59 18 93 04/08/17 22:53 98.3 F 108 18 120/74 93 04/08/17 21:08 19 96 04/08/17 20:00 97.9 F 107 19 110/71 97 04/08/17 16:25 15 95 04/08/17 15:10 98 F 104 16 115/77 96 Intake and Output 04/08/17 04/09/17 04/09/17 23:59 07:59 15:59 Intake Total 480 / 480 100 / 100 0 / 0 Output Total 0 / 0 225 / 225 125 / 125 Balance 480 / 480 -125 / -125 -125 / -125 Intake: IV Fluids 100 / 100 Maxipime 2,000 MG In 100 / 100 Dextrose 5% (Minibag+) 100 ML 100 ML @ 200 mls/ hr IVPB Q24H [facility] Rx#: [id number] Oral 480 / 480 0 / 0 0 / 0 Output: Urine 0 / 0 225 / 225 125 / 125 Other: Meal Dinner Percent of Meal Consumed 100% Weight 89 kg Patient Weight 04/09/17 23:59 Weight 89 kg - General Appearance General appearance: Present: well-developed, well-nourished (NAD) EENT: Present: ATNC Neck: Present: no JVD, supple Additional Comments: good areation ant bilat Cardiology: Present: no edema, normal S1, normal S2 Gastrointestinal: Present: no tenderness, no guarding, obese Integumentary: Present: warm and dry Neurologic: Present: no focal deficit Musculoskeletal: Present: no deformities Psychiatric: Present: mood/affect appropriate - Lab 04/09/17 02:57 04/09/17 02:57 Most recent lab results ABG pH 7.41 pH Units (7.32-7.45) 04/07/17 15:38 ABG pCO2 37 mmHg (35-45) 04/07/17 15:38 ABG pO2 98 mmHg (85-104) 04/07/17 15:38 ABG HCO3 23.5 mEQ/L (21-27) 04/07/17 15:38 ABG O2 Saturation 98 % (95-98) 04/07/17 15:38 Calcium 8.8 mg/dL (8.6-10.8) 04/09/17 02:57 Phosphorus 3.6 mg/dL (2.3-4.7) 04/07/17 01:37 Magnesium 2.4 mg/dL (1.6-2.6) 04/07/17 01:37 Urine Creatinine 112 mg/dL 04/07/17 18:16 Urine Sodium 39.0 mEq/L 04/07/17 18:16 Urine Total Protein 14 mg/dL (1-14) 04/07/17 18:16 - VTE Documentation of Mechanical Device: Graduated compression elastic hosiery Consult Discharge Plan - Plan Additional Instructions: pcp requested Referrals: Mildred Chu MD [Primary Care Provider] -
--- NOTE | 2017-04-09 14:24 | Invasive Diagnostic Lab Proc ---
Name: Jim Pineda Date of Study: 04/09/2017 Date: 1930 Ht: 63.0in Medical Record#: [id number] Age: 86 Wt: 196.21lb Gender: Male BSA: 1.92 Order #: [id number] BMI: 34.77 Physicians Procedure Physician: Eren Martins MD, [facility] Referring MD: Referring MD: Staff Name Position Time In Patricia Bryant RT Scrub 01:01 PM Zoila Pérez RN Junior Staff Accountant 01:01 PM Kassy Carl RN Monitor 01:01 PM Indications Indication Non-Stemi Procedures Performed Procedure L HRT ART/GRFT ANGIO Pre-Procedure Checklist Informed consent is complete signed and on chart. H\\T\\P is on chart. ID band is on and ID verified with patient. Patient NPO for procedure The procedure was described for the patient and questions were answered. ECG is on chart. Plan of Care Patient will tolerate the procedure without complications. Adequate level of comfort will be maintained. Hemodynamics will remain stable Patient will recover from procedure without complications. Respiratory function will be maintained. Cardiac rhythm will remain stable. Patient temperature will be maintained. Patient and/or family have verbalized understanding of the procedure. Patient Education Chief Complaint/Reason for Test: Cardiac Cath Developmental Category: Geriatric (65+ years) Developmentally Appropriate for Age: Yes Learning Barriers: None Education Needs: Procedure Education Method: Verbal Information Taught: Cardiac Cath Educational Evaluation: Able to repeat information Intravenous Access Time IV Size Location DC'd Fluid/Drip Rate Units RN 01:00 PM 20g 1 /" Patent On Arrival Lt Arm 0.9NaCl 25 ml/hr Zoila Pérez RN Allergies Iodinated Contrast Media - Oral and Trimethoprim ciprofloxacin Sulfamethoxazole Allantoin Penicillin Iodinated Contrast Media - IV Dye Penicillins Sulfa (Sulfonamide Antibiotics) ibuprofen simvastatin Vital Signs Time BP (mmHg) HR (bpm) O2 Sat. RR (bpm) LOC 12:12 PM 130 / 80 102 95 % 16 5 = Fully awake and oriented or at pre-proc level 01:02 PM / % 5 = Fully awake and oriented or at pre-proc level 01:02 PM / % 5 = Fully awake and oriented or at pre-proc level 01:33 PM / % 5 = Fully awake and oriented or at pre-proc level 01:48 PM / % 5 = Fully awake and oriented or at pre-proc level 12:55 PM 135 / 87 108 92 % 16 01:00 PM 125 / 89 117 93 % 16 01:05 PM 134 / 86 129 97 % 20 01:10 PM 137 / 92 107 96 % 20 01:16 PM 133 / 77 103 87 % 20 01:20 PM 128 / 88 104 91 % 20 01:25 PM 135 / 92 104 92 % 18 01:30 PM 128 / 91 106 92 % 20 01:35 PM 129 / 88 106 92 % 20 01:40 PM 129 / 88 104 95 % 20 01:45 PM 127 / 86 104 95 % 22 01:50 PM 120 / 89 105 94 % 21 01:55 PM 125 / 85 106 95 % 22 Procedural Medications Time Medication Dose Units Method Given By 01:02 PM Oxygen 2 L/min nasal cannula Zoila Pérez RN 01:02 PM Benadryl 50 mg Intravenous Zoila Pérez RN 01:03 PM Versed 1 mg Intravenous Zoila Pérez RN 01:03 PM Fentanyl 25 mcg Intravenous fen 01:13 PM Versed 1 mg Intravenous Zoila Pérez RN 01:13 PM Fentanyl 25 mcg Intravenous Zoila Pérez RN 01:17 PM Oxygen 4 L/min nasal cannula Zoila Pérez RN 01:17 PM Lidocaine 2% 20 ml Subcutaneous Eren Martins MD, FACC 01:18 PM Oxygen 10 L/min nasal cannula Zoila Pérez RN ASA Classification: CLASS II- Mild systemic disease (i.e. well-controlled diabetes, hypertension, asthma, cigarette smoking) Brittany Score Preprocedure Postprocedure Activity 2- Moves 4 extremities sustained head lift Activity Circulation 2- SBP +/= 20 points of pre-anesthetic level Circulation Consciousness 2- Awake and alert oriented x 3 Consciousness O2 Saturation 2- Able to maintain O2 satruation of 92% on room air O2 Saturation Respiratory 2- Able to deep breathe and cough well Respiratory Total Score 10 Total Score Contrast Agent: Isovue Diagnostic Contrast: 68 ml Total Contrast: 68 ml Fluoro Dose: 412 mGy Procedure Log Time Note Enter By 12:55 PM CathStat 12:55 PM Vitals capture started with the following parameters, Patient=Adult, Interval=5 min, Initial Molibqfn=692 mmHg, Deflation Rate=5 mmHg, Cuff placed on Right Arm 12:55 PM MY=006 bpm, PYSU=760/87 mmhg, SpO2=92 %, Resp=10 B/min 01:00 PM Recorded ECG: JB=615 Condition=Condition 1 01:00 PM NZ=276 bpm, OMBZ=916/89 mmhg, SpO2=93.0 %, Resp=16 B/min, Comment=ST 01: PM Pt arrived to laborer tin can 2 at 13: ejohnson 01:01 PM Patricia Bryant Position: Scrub Time in: : ejohnson : PM Zoila Pérez RN Position: Junior Staff Accountant Time in: : ejohnson : PM Kassy Carl RN Position: Monitor Time in: 13: ejohnson 01: PM Patient charges- Angio tray pack, Navilyst 3mm J, Pulse Oximetry and ACIST tubing and transducer ejohnson 01: PM Case Delayed No ejohnson : PM Hair removed from procedure site in holding area using clippers. Bilateral groin prepped with Chloraprep by Zoila Pérez RN, safety strap applied then patient was draped. Skin intact. ejohnson 01: PM ASA Class CLASS II- Mild systemic disease (i.e. well-controlled diabetes, hypertension, asthma, cigarette smoking) ejohnson 01: PM Meet and greet completed ejohnson 01: PM Sign in performed according to hospital policy. ejohnson 01:01 PM Procedure start 13: ejohnson 01:02 PM Time: 13:02 Oxygen on at 2 L/min per nasal cannula by Zoila Pérez RN ejohnson 01:02 PM Time: 13:02 Benadryl 50 mg Intravenous Given by Zoila Pérez RN [email or web address] 01:02 PM Time: 13:02 Patient comfortable and pain free: Yes ejohnson 01:02 PM Time: 13:02LOC: 5 = Fully awake and oriented or at pre-proc level ejohnson 01:03 PM Time: 13:03 Versed 1 mg Intravenous Given by Zoila Pérez RN [email or web address] 01:03 PM Time: 13:03 Fentanyl 25 mcg Intravenous Given by eddie ejohnson 01:05 PM CD=874 bpm, ECOW=099/86 mmhg, SpO2=97.0 %, Resp=20 B/min, Comment=ST 01:10 PM SO=976 bpm, ENGX=470/92 mmhg, SpO2=96.0 %, Resp=20 B/min, Comment=ST 01:13 PM Time: 13:13 Versed 1 mg Intravenous Given by Zoila Pérez RN ejohnson 01:13 PM Time: 13:13 Fentanyl 25 mcg Intravenous Given by Zoila Pérez RN ejohnson 01:16 PM ZP=535 bpm, ABEV=665/77 mmhg, SpO2=87.0 %, Resp=20 B/min, Comment=ST 01:17 PM Time: 13:17 Oxygen on at 4 L/min per nasal cannula by Zoila Pérez RN ejohnson 01:17 PM Time out performed according to hospital policy ejohnson 01:17 PM Time: 13:17 20 ml Lidocaine 2% to right groin Subcutaneous Given by Eren Martins MD, [facility] ejohnson 01:17 PM Time: 13:02 Patient comfortable and pain free: Yes ejohnson :18 PM Time: 13:02LOC: 5 = Fully awake and oriented or at pre-proc level ejohnson 01:18 PM Access obtained by percutaneous puncture. 5Fr 10cm Terumo Lead sheath placed in right Femoral artery. [id number] ejohnson :18 PM Time: 13:18 Oxygen on at 10 L/min per nasal cannula by Zoila Pérez RN ejohnson 01:19 PM 5Fr FR 4 catheter inserted over the wire [facility] ejohnson 01:19 PM Recorded Pressure: Ao, LZ=499, Condition=Condition 1 (Aorta) Ao 115/95/106 01:20 PM RCA angiography performed in AP. ejohnson 01:20 PM Recorded Pressure: Ao, WI=270, Condition=Condition 1 (Aorta) Ao 111/91/101 01:20 PM RL=513 bpm, STZV=173/88 mmhg, SpO2=91.0 %, Resp=20 B/min, Comment=ST 01:21 PM Recorded Pressure: Ao, CD=188, Condition=Condition 1 (Aorta) Ao 114/94/104 01:21 PM SVG to the 1st Diagonal angio performed in multiple views. ejohnson 01:21 PM Catheter removed ejohnson 01:22 PM 5Fr IM catheter inserted over the wire [id number] ejohnson 01:24 PM Recorded Pressure: Ao, KJ=935, Condition=Condition 1 (Aorta) Ao 114/94/104 01:25 PM Catheter removed ejohnson 01:25 PM 5Fr FL 4 catheter inserted over the wire DNC ejohnson 01:25 PM LC=886 bpm, DFBB=572/92 mmhg, SpO2=92.0 %, Resp=18 B/min, Comment=ST 01:26 PM Recorded Pressure: Ao, LS=956, Condition=Condition 1 (Aorta) Ao 110/85/97 01:27 PM LCA angiography performed in multiple views. ejohnson 01:28 PM Recorded Pressure: Ao, TX=706, Condition=Condition 1 (Aorta) Ao 96/71/82 01:29 PM Coronary Dominance: right ejohnson 01:30 PM Lesion found in Mid RCA. Pre Stenosis: 100 Pre ERNESTO Flow: 0: No Flow/No perfusion ejohnson 01:30 PM Lesion found in Proximal Circumflex. Pre Stenosis: 100 Pre ERNESTO Flow: 0: No Flow/No perfusion ejohnson 01:30 PM Proximal Left Anterior Descending Coronary Artery with 100% stenosis. ejohnson 01:30 PM Circumflex, Obtuse Marginal, Left Posterior Descending, and Left Posterolateral Coronary Arteries with 100 % stenosis. ejohnson 01:30 PM UO=732 bpm, LXWI=694/91 mmhg, SpO2=92.0 %, Resp=20 B/min, Comment=ST 01:32 PM Catheter removed ejohnson 01:32 PM 5Fr Pigtail catheter inserted over the wire DN ejohnson 01:32 PM Catheter selectively placed in left ventricle ejohnson 01:33 PM Recorded Pressure: LV, WE=651, Condition=Condition 1 (Left Ventricle) LV 102/50/55 01:33 PM Pressure channel 1 zeroed. 01:33 PM Recorded Pressure: LV, VP=182, Condition=Condition 1 (Left Ventricle) LV 114/20/24 01:33 PM Recorded Pressure: LV, Ao, CT=730, Condition=Condition 1 (Left Ventricle) LV 107/24/11, (Aorta) Ao 113/29/70 01:35 PM TW=509 bpm, HDAS=653/88 mmhg, SpO2=92.0 %, Resp=20 B/min, Comment=ST 01:38 PM Lesion found in LMCA. Pre Stenosis: 90 Pre ERNESTO Flow: 3: Complete and Brisk Flow/Perfusion ejohnson 01:38 PM Left Main Coronary Artery with 90% stenosis ejohnson 01:39 PM Catheter removed ejohnson 01:40 PM VJ=182 bpm, GLLK=365/88 mmhg, SpO2=95.0 %, Resp=20 B/min, Comment=ST 01:45 PM EA=519 bpm, IXGN=253/86 mmhg, SpO2=95.0 %, Resp=22 B/min, Comment=ST 01:48 PM Time: 13:33LOC: 5 = Fully awake and oriented or at pre-proc level ejohnson 01:48 PM Time: 13:33 Patient comfortable and pain free: Yes ejohnson 01:50 PM UR=008 bpm, OTSK=791/89 mmhg, SpO2=94.0 %, Resp=21 B/min, Comment=ST 01:52 PM Bolus angiogram of right Femoral complete: 4 ml/sec for a total of 7 mls ejohnson 01:53 PM Time: 13:48LOC: 5 = Fully awake and oriented or at pre-proc level ejohnson 01:53 PM Time: 13:48 Patient comfortable and pain free: Yes ejohnson 01:55 PM Cardiothoracic surgeon consulted by physician, Dr. Doan ejohnson 01:55 PM GP=455 bpm, ZMPP=468/85 mmhg, SpO2=95.0 %, Resp=22 B/min 01:56 PM Coronary Dominance: right ejohnson 01:56 PM Procedure completed at 13:56 ejohnson 01:57 PM Sign out completed: Radiation Dose 411.57 mGy Fluoro Time: 4.1 Isovue 370 - 200ml contrast 68 ml given by Eren Martins MD, [facility]. Complications: NoneCardiac Rehab Consult needed: NoConfirmed administered medications: No ejohnson 01:58 PM Isovue 370 - 200ml,1 Bottle(s) used. ejohnson 01:59 PM Arterial sheath pulled, Sterile 4x4 closure device used and was Successful ejohnson 02:00 PM Post ECG Sinus Tachycardia ejohnson 02:00 PM Post Blood Pressure 125/85 ejohnson 02:02 PM Information taught Cardiac Cath ejohnson 02:02 PM Education needs Responsibilities of Patient in Care, Disease Process, and Plan of Care ejohnson 02:02 PM Learning barriers :None ejohnson 02:02 PM Education Methods Verbal ejohnson 02:02 PM Education evaluation Able to repeat information ejohnson 02:03 PM Report given to Margaret MUÑOZ Pt on 2NE ejohnson 02:03 PM Complications: None ejohnson 02:03 PM Family placed in consult room. ejohnson 02:06 PM Lesion found in Distal LAD. Pre Stenosis: 100 Pre ERNESTO Flow: 0: No Flow/No perfusion ejohnson 02:14 PM pressure was held for 15 minutes per L. WANDA Pérez ejohnson 02:16 PM Opsite applied ejohnson 02:16 PM Site status No bleeding/hematoma - Rt Groin as reported by Zoila Pérez RN at 14:16 ejohnson 02:16 PM Delay to floor No ejohnson 02:17 PM Patient out of room: 14:17 to 2NE19 ejohnson Complications Complication None Hemodynamics Pressures Site Systolic/A Wave Diastolic/V Wave Mean AO 115 95 106 AO 111 91 101 AO 114 94 104 AO 114 94 104 AO 110 85 97 AO 96 71 82 LV 102 50 55 LV 114 20 24 LV 107 24 11 AO 113 29 70 Post Procedure Information Blood Pressure: 125/85 mmHg Rhythm: Sinus Tachycardia Post procedural instructions were given Surgery consult for CABG Closure Device Time Device Success/Fail 04/09/2017 2:00:00 PM Manual Compression Successful Site Checks Time Location Status Staff Sheath In? Note 02:16 PM Rt Groin No bleeding/hematoma Zoila Pérez RN Pulses Time Site Pre-Procedure Post-Procedure Note 04/09/2017 1:00:00 PM Bilateral DP \\T\\ PT 1+ 04/09/2017 1:00:00 PM Bilateral radial 2+ 04/09/2017 2:18:00 PM Bilateral DP \\T\\ PT 1+ Updated by Kassy Carl RN on 04/09/2017 2:19:11 PM Kassy Carl RN electronically signed on 04/09/2017 2:20:05 PM with status of Final
--- NOTE | 2017-04-09 15:19 | Invasive Diagnostic Lab ---
Name: Jim Pineda Date of Study: 04/09/2017 Date: 1930 Ht: 160.0 cm /63.0 in Medical Record#: [id number] Age: 86 Wt: 89. kg / 196.21 lb Account/Order#: [id number] Gender: Male BSA: 1.92 Order #: [id number] Fluoro Dose: 412 mGy BMI: 34.77 Procedure Physician: Eren Martins MD, [facility] Referring MD: Referring MD: Procedures Performed: LEFT HEART CATH W/ GRAFTS Indications: Non-Stemi Impressions: There is severe three vessel coronary artery disease. S/P CABG 1 of 2 patent bypass grafts. CKD Severe left main - proximal and mid LAD stenosis as well as SVG OM EF 15-20% by echo Recommendations: Optimal medical therapy of patient's disease. Aggressive risk factor modification. Consider high risk PCI left main - LAD and SVG OM History/Risk Factors: PNE SEPSIS CA TIA Hypertension Dyslipidemia CHF CHF within 2 weeks Chronic Lung Disease Prior SC Previous PCI Previous CABG Procedure Access obtained in the right Femoral artery by percutaneous puncture Complications: None Contrast: Isovue 68ml Hemodynamics: Pressures Site Systolic/ A Wave Diastolic/ V Wave End Diastolic/ Mean HR AO 115 95 106 104 AO 111 91 101 102 AO 114 94 104 104 AO 114 94 104 105 AO 110 85 97 104 AO 96 71 82 100 LV 102 50 55 107 LV 114 20 24 105 LV 107 24 11 104 AO 113 29 70 107 Coronary Dominance: right Lesion Findings/Interventions * Left Main Coronary Artery There is a 90% stenosis in the LMCA. The lesion has a ERNESTO flow of 3. * Left Anterior Descending Mid LAD focal 90% stenosis There is a 100% stenosis in the Distal LAD. The lesion has a ERNESTO flow of 0. * Circumflex There is a 100% stenosis in the Proximal Circumflex. The lesion has a ERNESTO flow of 0. * Right Coronary Artery There is a 100% stenosis in the Mid RCA. The lesion has a ERNESTO flow of 0 and has septal collaterals which feed from left to right. Additional Findings: Grafts * The saphenous vein graft to the 1st Marginal is patent with 80% stenosis in the mid portion of graft and 65% at distal portion. ERNESTO flow is 3. * The saphenous vein graft to the Right PDA is occluded. TOLLIVER was not utilized Updated by Kassy Carl RN on 04/09/2017 2:09:24 PM Eren Martins MD, FACC electronically signed on 04/09/2017 3:15:56 PM with status of Final
[2017-04-09] MEDS ORDERED: *HR* LORazepam 2 MG/ML VIAL IVP ONE (20:15)
[2017-04-09] MEDS: Melatonin 3 MG TABLET PO PRN (21:20)
[2017-04-09] MEDS ORDERED: *HR* LORazepam 2 MG/ML VIAL IVP PRN (23:59)
[2017-04-10 05:30] LABS: Basophils % 0.1 %; Eosinophils # 0.1 K/mcL (0.0-0.6); Eosinophils % 0.5 %; Hematocrit 39.5 % (37.5-50.1); Hemoglobin 12.6 g/dL (12.9-16.9); Immature Granulocytes % 0.6 % (0-4); Lymphocytes # 1.5 K/mcL (0.6-4.6); Lymphocytes % 11.4 %; Mean Corpuscular HGB Conc 31.9 g/dL (31.6-35.5); Mean Corpuscular Hemoglobin 30.5 pg (28.0-33.3); Mean Corpuscular Volume 95.6 fL (83.0-100.0); Mean Platelet Volume 10.1 fL (9.4-12.4); Monocytes % 7.8 %; Neutrophils # 10.2 K/mcL (1.6-8.9); Platelet Count 277 K/mcL (140-400); Red Blood Count 4.13 M/mcL (4.19-5.50); Red Cell Distribution Width 13.8 % (11.5-14.5); Segmented Neutrophils % 79.6 %
[2017-04-10] MEDS: Cefepime HCl 2,000 MG in D5% in Water (Mini-Bag+) 100 ML IVPB SCH (05:40)
[2017-04-10 05:49] LABS: BUN/Creatinine Ratio 26 (6-26); Calcium 8.9 mg/dL (8.6-10.8); Carbon Dioxide 22 mEq/L (19-29); Chloride 109 mEq/L (98-109); Glucose 94 mg/dL (70-99); Osmolality,Calculated 298 (280-300); Potassium 4.1 mEq/L (3.5-4.5); Sodium 141 mEq/L (136-145); eGFR For African Americans > 60 (> 60); eGFR For Non-African Americans > 60 (> 60)
[2017-04-10 05:51] LABS: Blood Urea Nitrogen 29 mg/dL (8-26)
[2017-04-10] MEDS: Ipratropium/Albuterol Neb 3 ML IH PRN ×3 (06:20→22:30)
[2017-04-10] MEDS: Ondansetron 4 MG/2 ML VIAL IVP PRN (09:18)
[2017-04-10] MEDS: Cholecalciferol (D-3) 1,000 UNIT TABLET PO SCH (09:18)
[2017-04-10] MEDS: Pantoprazole 40 MG VIAL IVP SCH (09:18)
[2017-04-10] MEDS: Metoprolol XL (24 HR) Succ 25 MG TAB.ER.24H PO SCH (09:18)
[2017-04-10] MEDS: Aspirin 81 MG TAB.CHEW PO SCH (09:18)
[2017-04-10] MEDS: Carbidopa/Levodopa 25/100 TABLET PO SCH ×4 (09:18→20:31)
[2017-04-10] MEDS: Fluticasone Propionate Nasal 50 MCG/SPRAY BOTTLE NS SCH ×2 (09:19→20:33)
--- NOTE | 2017-04-10 09:21 | Cardiology Progress Note ---
Date of Encounter: 04/10/17 Time of Encounter: 09:16 Assessment and Plan (1) NSTEMI (non-ST elevated myocardial infarction) Current Visit: Yes Status: Acute Troponin 2.46, 10.37, 17.3. Ischemic ECG changes. Typical chest pain symptoms x 1 week. No recurrent chest pain. TTE 04/07/17: LVEF 15-20%, severe global hypokinesis with regional variations, mild to moderate MR, mild TR, moderate PH. No prior echo for review. Hx of 3v CABG in 1993, most recent (confirmed) in 2001 with PCI to RCA. [facility] yesterday revealed 90% stenosis in the LMCA. Mid LAD focal 90% stenosis. 100 % stenosis in the Distal LAD. 100% stenosis in the Proximal Circumflex. 100% stenosis in the Mid RCA with septal collaterals which feed from left to right. Grafts : The saphenous vein graft to the 1st Marginal is patent with 80% stenosis in the mid portion of graft and 65% at distal portion. The saphenous vein graft to the Right PDA is occluded. TOLLIVER was not utilized . High risk PCI of the LMCA, LAD, and SVG graft was discussed with patients family yesterday. Family wanted to discuss once daughter arrived from [place]. Pt said she would be here today. I discussed with patient and this morning. He states that he does not want to have high risk PCI and would like to continue medical management. The rest of his family will be here later today. Continue medical management. He denies chest pain. Continue aspirin, statin, and bb. Increase toprol XL, pt remains tachycardic. Add imdur. Consider adding darrian/inhibitor if kidney function remains stable. No problems noted with right groin access site. Dressing removed. Activity restrictions reviewed with patient and . No driving for at least one week from [facility] standpoint. No heavy lifting. No strenuous activity. No soaking in a bathtub for one week, showers are ok. (2) Acute CHF (congestive heart failure) Current Visit: Yes Status: Acute Severely reduced systolic function, LVEF 15-20%. Chronicity unclear. Ischemic cardiomyoapthy. No prior records available for review. Currently appears euvolemic on exam. Tolerating toprol XL. No ACEi/ARB due to CKD. Consider starting darrian-inhibitor if kidney function remains stable. - 250 ml over last 24 hours. Strict I&Os, Na/Fluid restriction diet, daily weights. Qualifiers: Congestive heart failure type: systolic Qualified Code(s): I50.21 - Acute systolic (congestive) heart failure Discussion w patient/family: The assessment and plan as outlined above was discussed with the patient and/or family members who expressed understanding and agreement. All questions were answered. Thank you for involving us in the care of your patient. Please call with any questions. Subjective Principal diagnosis: NSTEMI Interval history: Patient denies symptoms of chest pain or SOB. C/o cough with thick sputum and feels congested. Objective Vital Signs, Last 4 Hours Temp Pulse Resp BP Pulse Ox 04/10/17 06:21 20 94 04/10/17 06:10 97.5 F L 125 25 156/92 96 General: Conversant, No Apparent Distress HEENT: Atraumatic, Normocephaly, Mucus Membranes Moist Neck: No JVD, Normal carotid pulses Cardiac: Reg Rate and Rhythm, Normal S1 and S2, No Murmur Lungs: Other (Faint wheezes scattered throughout. Respirations easy. ) Neuro: Alert and responsive, No focal deficits noted Abdomen: Soft, Non-Tender Skin: No rashes noted on visualized skin Musculoskeletal: No Chest Wall Tenderness Extremities: No Clubbing, No Cyanosis, No Edema, Normal Pulses, Other (right groin soft without hematoma. ) Results 04/10/17 04:36 04/10/17 04:36 Lab Results 04/10/17 04/10/17 04:36 04:36 WBC 12.9 H Hgb 12.6 L Hct 39.5 Plt Count 277 Sodium 141 Potassium 4.1 Chloride 109 Carbon Dioxide 22 BUN 29 H D Creatinine 1.12 Glucose 94 Calcium 8.9 - EKG Interpretation EKG results cardiology: personally reviewed (EKG 03/19/[address], HR 104. EKG changes resolved.) - VTE Documentation of Mechanical Device: Graduated compression elastic hosiery Consult Discharge Plan - Plan Additional Instructions: pcp requested Referrals: Mildred Chu MD [Primary Care Provider] -
--- NOTE | 2017-04-10 10:26 | Internal Med Progress Note ---
<Matthias Vaca - Last Filed: 04/10/17 14:05> Date of Encounter: 04/10/17 - Constitutional Vitals: Temp Pulse Resp BP Pulse Ox 98.4 F 101 17 118/78 94 04/10/17 11:47 04/10/17 11:47 04/10/17 11:47 04/10/17 11:47 04/10/17 11:47 Internal Medicine: Result - Labs CBC & Chem 7: 04/10/17 04:36 04/10/17 04:36 Labs: Short CBC 04/10/17 Range/Units 04:36 WBC 12.9 H (4.3-11.1) K/mcL Hgb 12.6 L (12.9-16.9) g/dL Hct 39.5 (37.5-50.1) % Plt Count 277 (140-400) K/mcL Neutrophils # 10.2 H (1.6-8.9) K/mcL BMP 04/10/17 04:36 Sodium 141 Potassium 4.1 Chloride 109 Carbon Dioxide 22 BUN 29 H D Creatinine 1.12 Glucose 94 Calcium 8.9 - ABG Interpretation ABG results: ABG ABG pH 7.41 pH Units (7.32-7.45) 04/07/17 15:38 ABG pCO2 37 mmHg (35-45) 04/07/17 15:38 ABG pO2 98 mmHg (85-104) 04/07/17 15:38 ABG O2 Saturation 98 % (95-98) 04/07/17 15:38 PT/INR, D-dimer PT 11.9 Seconds (9.4-12.1) 04/09/17 08:14 D-Dimer 543 ng/mLFEU (0-500) H 04/07/17 01:44 Consult Discharge Plan - Plan Additional Instructions: pcp requested Referrals: Mildred Chu MD [Primary Care Provider] - - Attending Attestation I examined this patient and my medical decision-making was reviewed with the DIRECTOR CLIENT SERVICES/PA/Advanced Practice Nurse/Resident Physician. I agree with the documented findings, disposition and treatment plan as described except to the extent set forth below. cardiology on board and will be discussing with patient/family regarding plan. appreciated input. <Tenzin Christianson - Last Filed: 04/10/17 14:50> Date of Encounter: 04/10/17 Time of Encounter: 14:44 - Assessment and plan (1) NSTEMI (non-ST elevated myocardial infarction) Current Visit: Yes Status: Acute Assessment and plan: 86 y/o male presented to [facility] with sob. Patient states he has worsening sob, productive sputum of two days, and one week of chest pain. Patient had elevated troponin trending up with highest being 17.30. Cardiac hx: - Known CAD s/p 3V CABG in 1993 with PCI to RCA in 2001. - ERICK on 04/07/17 found LVEF 15-20% with severe global hypokinesis with regional variations but indeterminate LV diastolic function. Underwent Cardiac catheterization Found: "severe three vessel coronary artery disease S/P CABG 1 of 2 patent bypass grafts Severe left main-proximal and mid LAD stenosis (90%) as well as SVG OM" Cardiology recommends: medical theraphy and consider high risk PCI left main: LAD and SVG OM. Cardiology and family will discuss procedure and make decision on medical theraphy vs PCI. Palliative care on board. States patient qualifies for hospice based on EF 15% and sob at rest. (2) Community acquired pneumonia Current Visit: Yes Status: Acute Assessment and plan: Patient had 2-day history of worsening shortness of breath and cough with occasional yellow/orange sputum production. - CXR on 04/06/17 at [place] ED showed persistent right perihilar airspace opacity concerning of right perihilar pneumonia. - Patient has no clinical improvement while on outpatient azithromycin for a week. The failure to response indicates the need of hospitalization & IV antibiotics. Sputum culture and urine antigens for Legionella & Strep. pneumoniae negative. blood culture negative prelimenarily. - Continue cefepime (day 4) for broad-spectrum coverage and failed outpatient theraphy. (3) Sepsis Current Visit: Yes Status: Resolved Assessment and plan: Patient meets 2 SIRS criteria (WBC 22.8 & HR 114) with lactic acidosis at 3.3. - Likely secondary to pneumonia. - WBC trending down now 12.5 -IVF d/c as patient has systolic HF with EF of 15-20% -continue antibiotics. -afebrile, but still tachycardic. Qualifiers: Sepsis type: sepsis due to unspecified organism Qualified Code(s): A41.9 - Sepsis, unspecified organism (4) Acute respiratory failure with hypoxia Current Visit: Yes Status: Resolved Assessment and plan: 2nd to CAP complicated by systolic heart failure. Patient is currently on 4L O2 an increase from 2L at home and uses CPAP at night. Presented with shortness of breath requiring 4L of oxygen compared to occasional 2L home oxygen use, mostly at nighttime with CPAP. - Likely secondary to pneumonia in the setting of COPD but cannot completely exclude underlying pulmonary edema given significant systolic heart failure per echo. -ABG shows pH 7.42 with pCO2 31 and PO2 98. -continue prednisone (for 5 days)., broncodialators and supplental O2. -continue antibiotics. (5) Acute on chronic renal failure Current Visit: Yes Status: Resolved Assessment and plan: - SCr 1.74 & eGFR 37 on admission compared to his baseline (SCr ~1.3 & eGFR ~45) -imrpoved to 1.12. Resolved. - Likely secondary to sepsis and associated hypovolemia. - Patient of Dr. Watkins and [facility] nephrology: states patients Scr returning to baseline and can undergo LHC. - Avoid nephrotoxin. - IV fluid has been held at this time given current systolic heart failure with LVEF 15-20%. - Closely monitor renal function and electrolytes. (6) Acute CHF (congestive heart failure) Current Visit: Yes Status: Acute Assessment and plan: - ERICK on 04/07/17 found LVEF 15-20% with severe global hypokinesis with regional variations but indeterminate LV diastolic function. - Patient does not appear significantly fluid overloaded at this time. - Cardiology on board and recommends discontinuation of CCB and start Toprol XL. No ACEi/ARB given current BRENDAN on CKD. Appreciate cardiology assistance on CHF management. - Also appreciate nephrology recommendations regarding diuresis. - Discontinue IV fluid for now. - Strict I/O and daily weight. Qualifiers: Congestive heart failure type: systolic Qualified Code(s): I50.21 - Acute systolic (congestive) heart failure - Subjective Interval history: Patient had CP this morning which was relieved by nitroglycerin. He nausea, diaphoresis ,dizziness, sob during my visit with him today. - Constitutional Vitals: Temp Pulse Resp BP Pulse Ox 97.5 F L 125 20 156/92 94 04/10/17 06:10 04/10/17 06:10 04/10/17 06:21 04/10/17 06:10 04/10/17 06:21 General appearance: Present: cooperative, A&O X 3, pleasant, obese, severe distress (Severe SOB and respiratory distress), answers questions appropriately - Respiratory Respiratory exam: Present: CTAB. Absent: accessory muscle use, rales, rhonchi, wheezes - Cardiovascular Cardiovascular exam: Present: RRR, +S1, +S2. Absent: diastolic murmur, gallop, rubs, systolic murmur - GI/Abdominal GI/Abdominal exam: Present: normal bowel sounds, soft, no peritoneal signs. Absent: distended, tenderness - Extremities Exam Extremities exam: Present: warm, radial pulses palpable and symetrical. Absent : calf tenderness, cyanotic, pedal edema - Skin Skin exam: Present: dry, intact Internal Medicine: Result - Labs CBC & Chem 7: 04/10/17 04:36 04/10/17 04:36 Labs: Short CBC 04/10/17 Range/Units 04:36 WBC 12.9 H (4.3-11.1) K/mcL Hgb 12.6 L (12.9-16.9) g/dL Hct 39.5 (37.5-50.1) % Plt Count 277 (140-400) K/mcL Neutrophils # 10.2 H (1.6-8.9) K/mcL BMP 04/10/17 04:36 Sodium 141 Potassium 4.1 Chloride 109 Carbon Dioxide 22 BUN 29 H D Creatinine 1.12 Glucose 94 Calcium 8.9 - ABG Interpretation ABG results: ABG ABG pH 7.41 pH Units (7.32-7.45) 04/07/17 15:38 ABG pCO2 37 mmHg (35-45) 04/07/17 15:38 ABG pO2 98 mmHg (85-104) 04/07/17 15:38 ABG O2 Saturation 98 % (95-98) 04/07/17 15:38 PT/INR, D-dimer PT 11.9 Seconds (9.4-12.1) 04/09/17 08:14 D-Dimer 543 ng/mLFEU (0-500) H 04/07/17 01:44 - VTE Documentation of Mechanical Device: Graduated compression elastic hosiery
[2017-04-10] MEDS ORDERED: Metoprolol XL (24 HR) Succ 25 MG TAB.ER.24H PO ONE (11:00)
--- NOTE | 2017-04-10 12:57 | Palliative Progress Note ---
Date of Encounter: 04/10/17 Time of Encounter: 12:00 - Assessment and plan (1) Dyspnea Current Visit: No Status: Acute Assessment and plan: Patient is bed. SOB with conversation and eating. Denies CP at present. Continue supplemental Oxygen and duonebs. Patient EF 15%. and dyspnea at rest. Antibiotics. Qualifiers: Dyspnea type: unspecified Qualified Code(s): R06.00 - Dyspnea, unspecified (2) Goals of care, counseling/discussion Current Visit: Yes Status: Acute Assessment and plan: Family at bedside. Daughter arrived from [place] and [facility] results reveal 90% stenosis in the LMCA. Mid LAD focal 90% stenosis. 100% stenosis in the distal LAD, 100% stenosis in proximal circumflex. 100% stenosis in mid RCA with septal collaterals which feed from left to right. Discussed results with Cardiology. Family desires to have f/u discussion with Cardiology. Patient doesn't desire to have risk PCI and would like to continue medical management. Dr. Lua to discuss [facility] with patient and family. I will f/u after he completes discussion for DC plan development. Patient meet criteria for Hospice care based on prro EF of 15% and dyspnea at rest. (3) Community acquired pneumonia Current Visit: Yes Status: Acute (4) NSTEMI (non-ST elevated myocardial infarction) Current Visit: Yes Status: Acute - Time Spent With Patient Total time spent is greater than 50% in coordination of care (as documented) at patient's floor/unit and/or counseling patient: 25 - 35 minutes - Subjective Interval history: Patient sitting up in bed eating lunch. He had chest pain last PM that was effectively relieved with NTG. Daughter has arrived from [place] and is at bedside with patients . Patient desires to go home. Family desires to have meeting with Cardiology for results of [facility] now that daughter has arrived from [place]. - Constitutional Vitals: Abnormal lab results WBC 12.9 K/mcL (4.3-11.1) H 04/10/17 04:36 RBC 4.13 M/mcL (4.19-5.50) L 04/10/17 04:36 Hgb 12.6 g/dL (12.9-16.9) L 04/10/17 04:36 Neutrophils # 10.2 K/mcL (1.6-8.9) H 04/10/17 04:36 APTT 101.8 Seconds (26.0-36.0) H D 04/07/17 09:46 D-Dimer 543 ng/mLFEU (0-500) H 04/07/17 01:44 BUN 29 mg/dL (8-26) H D 04/10/17 04:36 Lactic Acid 3.3 mmol/L (0.5-2.2) H 04/07/17 01:44 AST 55 Units/L (5-34) H 04/07/17 01:37 Creatine Kinase 569 Units/L (30-200) H 04/07/17 01:37 Troponin I 17.30 ng/mL (0-0.03) H* 04/07/17 07:02 B-Natriuretic Peptide 1500 pg/mL (0-100) H 04/07/17 01:37 Triglycerides 174 mg/dL (< 150) H 04/07/17 01:37 Cholesterol 229 mg/dL (< 200) H 04/07/17 01:37 LDL Cholesterol, Calc 148 mg/dL (0-99) H 04/07/17 01:37 VLDL Cholesterol, Calc 35 mg/dL (< 31) H 04/07/17 01:37 Cholesterol/HDL Ratio 5.0 (0-4.9) H 04/07/17 01:37 - Head Head exam: Present: atraumatic, normal inspection, normocephalic - Eye Eye exam: Present: PERRL Pupils: Present: PERRL - ENT ENT exam: Present: mucous membranes moist - Neck Neck exam: Present: full ROM - Respiratory Respiratory exam: Present: decreased breath sounds - Expanded Respiratory Exam Location: decreased breath sounds: Left, Right, Lower - Cardiovascular Cardiovascular exam: Present: RRR, +S1, +S2 - Expanded Cardiovascular Exam Peripheral pulses: 1+: Femoral (L) PM, Femoral (R) PM, Posterior Tibialis (L), Posterior Tibialis (R), 2+: Carotid (L) PM, Carotid (R) PM, Radial (L), Radial ( R), Dorsalis Pedis (L) PM, Dorsalis Pedis (R) PM - GI/Abdominal GI/Abdominal exam: Present: normal bowel sounds, soft - Rectal Rectal exam: Present: deferred - Extremities Exam Extremities exam: Present: full ROM, pedal edema (1+ ankle) - Back Exam Back exam: Present: tenderness - Neurological Exam Neurological exam: Present: alert (oriented to place) - Psychiatric Psychiatric exam: Present: normal affect Palliative Quality Palliative Quality: Screen for Code Status: Yes, Screen for Goals of Care: Yes, Screen for Pain: Yes, If Pain Regimen Started, Initiate Bowel Regimen: NA, Screen for Nausea/Vomitting: Yes Code Status: 04/07/17 00:20 Resuscitation Status: Active [RES] Routine Comment: Resuscitation Status: [id number] - Labs CBC & Chem 7: 04/10/17 04:36 04/10/17 04:36 Labs: Laboratory Results - last 24 hr 04/10/17 04/10/17 04:36 04:36 WBC 12.9 H RBC 4.13 L Hgb 12.6 L Hct 39.5 MCV 95.6 MCH 30.5 MCHC 31.9 RDW 13.8 Plt Count 277 MPV 10.1 Immature Gran % 0.6 Seg Neutrophils % 79.6 Lymphocytes % 11.4 Monocytes % 7.8 Eosinophils % 0.5 Basophils % 0.1 Neutrophils # 10.2 H Lymphocytes # 1.5 Monocytes # 1.0 Eosinophils # 0.1 Basophils # 0.0 Sodium 141 Potassium 4.1 Chloride 109 Carbon Dioxide 22 BUN 29 H D Creatinine 1.12 Est GFR ( Amer) > 60 Est GFR (Non-Af Amer) > 60 BUN/Creatinine Ratio 26 Glucose 94 Calculated Osmolality 298 Calcium 8.9 - ABG Interpretation ABG results: ABG ABG pH 7.41 pH Units (7.32-7.45) 04/07/17 15:38 ABG pCO2 37 mmHg (35-45) 04/07/17 15:38 ABG pO2 98 mmHg (85-104) 04/07/17 15:38 ABG O2 Saturation 98 % (95-98) 04/07/17 15:38 PT/INR, D-dimer PT 11.9 Seconds (9.4-12.1) 04/09/17 08:14 D-Dimer 543 ng/mLFEU (0-500) H 04/07/17 01:44 Consult Discharge Plan - Plan Additional Instructions: pcp requested Referrals: Mildred Chu MD [Primary Care Provider] -
[2017-04-10] MEDS: Isosorbide MONOnitrate (24 HR) 30 MG TAB.ER.24H PO SCH (13:46)
[2017-04-10] MEDS: *HR* Acetylcysteine 20% 600 MG/3 ML ORAL SYRINGE PO SCH ×2 (13:46→20:31)
--- NOTE | 2017-04-10 16:09 | Nephrology Progress Note ---
Date of Encounter: 04/10/17 Time of Encounter: 16:00 - Assessment and Plan (1) BRENDAN (acute kidney injury) Current Visit: Yes Status: Acute Scr improving still at 1.12, GFR >60 which is great especially after LHC yesterday with mucomyst on board UOP good Continue to avoid nephrotoxins if possible Will follow only peripherally at this point only if needed (2) CKD (chronic kidney disease) stage 3, GFR 30-59 ml/min Current Visit: Yes Status: Acute (3) NSTEMI (non-ST elevated myocardial infarction) Current Visit: Yes Status: Acute Per cardiology (4) Community acquired pneumonia Current Visit: Yes Status: Acute antibiotics per primary team Subjective Principal diagnosis: NSTEMI Interval history: Interim events noted s/p LHC yesterday with several stenoses noted with the question of high risk PCI discussed which pt is not open to. Pt seen and examined with at bedside Objective - Vital Signs Vital signs: Vital Signs Temp Pulse Resp BP Pulse Ox 04/10/17 11:47 98.4 F 101 17 118/78 94 04/10/17 09:00 95 04/10/17 06:21 20 94 04/10/17 06:10 97.5 F L 125 25 156/92 96 04/10/17 04:00 98.3 F 97 21 107/76 97 04/10/17 00:00 98 21 111/73 96 04/09/17 20:44 98.4 F 107 20 112/79 94 Intake and Output 04/10/17 04/10/17 04/10/17 07:59 15:59 23:59 Intake Total 100 / 100 800 / 800 Output Total 250 / 250 100 / 100 Balance -150 / -150 700 / 700 Intake: Oral 100 / 100 800 / 800 Output: Urine 250 / 250 100 / 100 Other: Meal Lunch Percent of Meal Consumed 45% Weight 89.8 kg 92.1 kg Patient Weight 04/10/17 23:59 Weight 92.1 kg - General Appearance General appearance: Present: frail (NAD) EENT: Present: ATNC, mucous membranes moist Neck: Present: supple Additional Comments: improved areation ant bilat Cardiology: Present: no edema, normal S1, normal S2 Gastrointestinal: Present: no tenderness, no guarding Integumentary: Present: warm and dry Neurologic: Present: no focal deficit Musculoskeletal: Present: no deformities Psychiatric: Present: mood/affect appropriate - Lab 04/10/17 04:36 04/10/17 04:36 Most recent lab results ABG pH 7.41 pH Units (7.32-7.45) 04/07/17 15:38 ABG pCO2 37 mmHg (35-45) 04/07/17 15:38 ABG pO2 98 mmHg (85-104) 04/07/17 15:38 ABG HCO3 23.5 mEQ/L (21-27) 04/07/17 15:38 ABG O2 Saturation 98 % (95-98) 04/07/17 15:38 Calcium 8.9 mg/dL (8.6-10.8) 04/10/17 04:36 Phosphorus 3.6 mg/dL (2.3-4.7) 04/07/17 01:37 Magnesium 2.4 mg/dL (1.6-2.6) 04/07/17 01:37 Urine Creatinine 112 mg/dL 04/07/17 18:16 Urine Sodium 39.0 mEq/L 04/07/17 18:16 Urine Total Protein 14 mg/dL (1-14) 04/07/17 18:16 - VTE Documentation of Mechanical Device: Graduated compression elastic hosiery Consult Discharge Plan - Plan Additional Instructions: pcp requested Referrals: Mildred Chu MD [Primary Care Provider] -
[2017-04-10] MEDS ORDERED: Acetaminophen 325 MG TABLET PO PRN (18:06)
[2017-04-11] MEDS: Cefepime HCl 2,000 MG in D5% in Water (Mini-Bag+) 100 ML IVPB SCH (03:23)
[2017-04-11 04:30] LABS: Basophils % 0.2 %; Eosinophils # 0.4 K/mcL (0.0-0.6); Eosinophils % 3.3 %; Hematocrit 37.7 % (37.5-50.1); Hemoglobin 11.8 g/dL (12.9-16.9); Immature Granulocytes % 0.8 % (0-4); Lymphocytes # 1.6 K/mcL (0.6-4.6); Lymphocytes % 13.8 %; Mean Corpuscular HGB Conc 31.3 g/dL (31.6-35.5); Mean Corpuscular Hemoglobin 30.1 pg (28.0-33.3); Mean Corpuscular Volume 96.2 fL (83.0-100.0); Mean Platelet Volume 10.5 fL (9.4-12.4); Monocytes % 8.7 %; Neutrophils # 8.7 K/mcL (1.6-8.9); Red Blood Count 3.92 M/mcL (4.19-5.50); Red Cell Distribution Width 13.8 % (11.5-14.5); Segmented Neutrophils % 73.2 %
[2017-04-11] MEDS: Nitroglycerin 0.4 MG TAB.SUBL SL PRN (04:33)
[2017-04-11 04:36] LABS: BUN/Creatinine Ratio 25 (6-26); Blood Urea Nitrogen 33 mg/dL (8-26); Calcium 8.5 mg/dL (8.6-10.8); Carbon Dioxide 24 mEq/L (19-29); Chloride 108 mEq/L (98-109); Glucose 110 mg/dL (70-99); Osmolality,Calculated 296 (280-300); Potassium 3.9 mEq/L (3.5-4.5); Sodium 139 mEq/L (136-145); eGFR For African Americans > 60 (> 60); eGFR For Non-African Americans 51 (> 60)
[2017-04-11 05:12] LABS: Platelet Count 230 K/mcL (140-400)
--- NOTE | 2017-04-11 09:06 | Internal Med Progress Note ---
Date of Encounter: 04/11/17 - Assessment and plan (1) NSTEMI (non-ST elevated myocardial infarction) Current Visit: Yes Status: Acute (2) Community acquired pneumonia Current Visit: Yes Status: Acute (3) Sepsis Current Visit: Yes Status: Resolved Qualifiers: Sepsis type: sepsis due to unspecified organism Qualified Code(s): A41.9 - Sepsis, unspecified organism (4) Acute respiratory failure with hypoxia Current Visit: Yes Status: Resolved (5) Acute on chronic renal failure Current Visit: Yes Status: Resolved (6) Acute CHF (congestive heart failure) Current Visit: Yes Status: Acute Qualifiers: Congestive heart failure type: systolic Qualified Code(s): I50.21 - Acute systolic (congestive) heart failure - Subjective Interval history: Patient had CP this morning which was relieved by nitroglycerin. He nausea, diaphoresis ,dizziness, sob during my visit with him today. - Constitutional Vitals: Temp Pulse Resp BP Pulse Ox 98.2 F 101 18 102/65 96 04/11/17 07:01 04/11/17 07:01 04/11/17 07:01 04/11/17 07:01 04/11/17 07:01 General appearance: Present: cooperative, A&O X 3, pleasant, obese, severe distress (Severe SOB and respiratory distress), answers questions appropriately Internal Medicine: Result - Labs CBC & Chem 7: 04/11/17 03:51 04/11/17 03:51 Labs: Short CBC 04/11/17 Range/Units 03:51 WBC 11.9 H (4.3-11.1) K/mcL Hgb 11.8 L (12.9-16.9) g/dL Hct 37.7 (37.5-50.1) % Plt Count 230 (140-400) K/mcL Neutrophils # 8.7 (1.6-8.9) K/mcL BMP 04/11/17 03:51 Sodium 139 Potassium 3.9 Chloride 108 Carbon Dioxide 24 BUN 33 H Creatinine 1.33 H Glucose 110 H Calcium 8.5 L - ABG Interpretation ABG results: ABG ABG pH 7.41 pH Units (7.32-7.45) 04/07/17 15:38 ABG pCO2 37 mmHg (35-45) 04/07/17 15:38 ABG pO2 98 mmHg (85-104) 04/07/17 15:38 ABG O2 Saturation 98 % (95-98) 04/07/17 15:38 PT/INR, D-dimer PT 11.9 Seconds (9.4-12.1) 04/09/17 08:14 D-Dimer 543 ng/mLFEU (0-500) H 04/07/17 01:44 - VTE Documentation of Mechanical Device: Graduated compression elastic hosiery Consult Discharge Plan - Plan Additional Instructions: pcp requested Referrals: Mildred Chu MD [Primary Care Provider] - 04/22/17 1:30 pm
[2017-04-11] MEDS: Isosorbide MONOnitrate (24 HR) 30 MG TAB.ER.24H PO SCH (09:07)
[2017-04-11] MEDS: Cholecalciferol (D-3) 1,000 UNIT TABLET PO SCH (09:07)
[2017-04-11] MEDS: Aspirin 81 MG TAB.CHEW PO SCH (09:07)
[2017-04-11] MEDS: Carbidopa/Levodopa 25/100 TABLET PO SCH ×4 (09:07→20:30)
[2017-04-11] MEDS: Metoprolol XL (24 HR) Succ 25 MG TAB.ER.24H PO SCH (09:08)
[2017-04-11] MEDS: Fluticasone Propionate Nasal 50 MCG/SPRAY BOTTLE NS SCH (09:11)
--- NOTE | 2017-04-11 10:20 | Cardiology Progress Note ---
Date of Encounter: 04/11/17 Time of Encounter: 10:00 Assessment and Plan (1) NSTEMI (non-ST elevated myocardial infarction) Current Visit: Yes Status: Acute Troponin 2.46, 10.37, 17.3. Ischemic ECG changes. TTE 04/07/17: LVEF 15-20%, severe global hypokinesis with regional variations, mild to moderate MR, mild TR, moderate PH. No prior echo for review. Hx of 3v CABG in 1993, most recent (confirmed) in 2001 with PCI to RCA. LHC revealed 90% stenosis in the LMCA. Mid LAD focal 90% stenosis. 100% stenosis in the Distal LAD. 100% stenosis in the Proximal Circumflex. 100% stenosis in the Mid RCA with septal collaterals which feed from left to right. Grafts : The saphenous vein graft to the 1st Marginal is patent with 80% stenosis in the mid portion of graft and 65% at distal portion. The saphenous vein graft to the Right PDA is occluded. TOLLIVER was not utilized . High risk PCI of the LMCA, LAD, and SVG graft was discussed with patients family yesterday. Patient and family opted for medical management and comfort care. He continues to be a DNRCCA. Discussed with Dr. Vaca, planning for ECF placement. Continue aspirin, statin, and bb. C/o chest pain and SOB this morning. He describes PND in the mornings and SOB through out the day. Will start lasix. Increase imdur. (2) Acute CHF (congestive heart failure) Current Visit: Yes Status: Acute Severely reduced systolic function, LVEF 15-20%. Ischemic cardiomyopathy. Describes PND and SOB. Add lasix. Tolerating toprol XL. No ACEi/ARB due to CKD. No darrian-inhibitor d/t kidney function. + 260 ml over last 24 hours. Strict I&Os, Na/Fluid restriction diet, daily weights. Qualifiers: Congestive heart failure type: systolic Qualified Code(s): I50.21 - Acute systolic (congestive) heart failure Discussion w patient/family: The assessment and plan as outlined above was discussed with the patient and/or family members who expressed understanding and agreement. All questions were answered. Thank you for involving us in the care of your patient. Please call with any questions. Subjective Principal diagnosis: NSTEMI Interval history: Patient reported 10/10 left sided chest pain this morning at 0400 am. He also c/ o SOB when waking up. Symptoms improved with one SL NTG. Daughters and at bedside. Objective Vital Signs, Last 4 Hours Temp Pulse Resp BP Pulse Ox 04/11/17 07:01 98.2 F 101 18 102/65 96 General: Conversant, No Apparent Distress, Other (Respirations easy on 4L NC) HEENT: Atraumatic, Normocephaly, Mucus Membranes Moist Neck: No JVD, Normal carotid pulses Cardiac: Reg Rate and Rhythm, Normal S1 and S2, No Murmur, Other (ST on telemetry) Lungs: Normal Breath Sounds, No Wheeze, Rales, Rhonchi Neuro: Alert and responsive, No focal deficits noted Abdomen: Soft, Non-Tender Skin: No rashes noted on visualized skin Musculoskeletal: Other (Left chest wall tenderness noted. ) Extremities: No Clubbing, No Cyanosis, No Edema, Normal Pulses Results 04/11/17 03:51 04/11/17 03:51 Lab Results 04/11/17 04/11/17 03:51 03:51 WBC 11.9 H Hgb 11.8 L Hct 37.7 Plt Count 230 Sodium 139 Potassium 3.9 Chloride 108 Carbon Dioxide 24 BUN 33 H Creatinine 1.33 H Glucose 110 H Calcium 8.5 L - VTE Documentation of Mechanical Device: Graduated compression elastic hosiery Consult Discharge Plan - Plan Additional Instructions: pcp requested Referrals: Mildred Chu MD [Primary Care Provider] - 04/22/17 1:30 pm
[2017-04-11] MEDS ORDERED: Isosorbide MONOnitrate (24 HR) 30 MG TAB.ER.24H PO ONE (10:30)
[2017-04-11] MEDS: Furosemide 20 MG TABLET PO SCH (11:23)
--- NOTE | 2017-04-11 11:42 | Discharge Summary ---
<Tenzin Christianson - Last Filed: 04/11/17 13:57> Date of Encounter: 04/11/17 Time of Encounter: 11:40 - Discharge Diagnosis (1) NSTEMI (non-ST elevated myocardial infarction) Priority: Primary Status: Acute (2) Community acquired pneumonia Priority: Secondary Status: Acute (3) Sepsis Priority: Secondary Status: Resolved Qualifiers: Sepsis type: sepsis due to unspecified organism Qualified Code(s): A41.9 - Sepsis, unspecified organism (4) Acute respiratory failure with hypoxia Priority: Secondary Status: Resolved (5) Acute on chronic renal failure Priority: Secondary Status: Resolved (6) Acute CHF (congestive heart failure) Priority: Secondary Status: Acute Qualifiers: Congestive heart failure type: systolic Qualified Code(s): I50.21 - Acute systolic (congestive) heart failure - Discharge Medications Prescriptions: Nitroglycerin 0.4 mg SL Q5MIN PRN #30 tab.subl PRN Reason: Chest Pain Furosemide [Lasix] 20 mg PO DAILY #30 tablet Isosorbide MONOnitrate (24 HR) [Imdur] 60 mg PO DAILY #30 tab.er.24h Metoprolol XL (24 HR) Succ [Toprol Xl] 50 mg PO DAILY #30 tab.er.24h Potassium Chloride 10 meq PO DAILY #30 tab.er.prt Home Medications: Albuterol Sulfate 2.5 mg IH Q4H PRN 04/06/17 [History] Aspirin 81 mg PO DAILY 04/06/17 [History] Atorvastatin [Lipitor] 40 mg PO HS 04/06/17 [History] Budesonide [Rhinocort Allergy] 1 spray NS BID 04/06/17 [History] Carbidopa/Levodopa [Carbidopa-Levodopa 25-100 Tab] 1 tab PO QID 04/06/17 [ History] Cholecalciferol (Vitamin D3) [Vitamin D3] 5,000 unit PO DAILY 04/06/17 [History] Ipratropium [place] 2 spray NS BID 04/06/17 [History] Nitroglycerin [Nitrostat] 0.4 mg SL AD 04/06/17 [History] Potassium Citrate [Urocit-K] 10 meq PO QID 04/06/17 [History] Allopurinol [Zyloprim 100 MG] 100 mg PO DAILY 04/07/17 [History] Furosemide [Lasix] 20 mg PO DAILY #30 tablet 04/11/17 [Rx] Isosorbide MONOnitrate (24 HR) [Imdur] 60 mg PO DAILY #30 tab.er.24h 04/11/17 [ Rx] Metoprolol XL (24 HR) Succ [Toprol Xl] 50 mg PO DAILY #30 tab.er.24h 04/11/17 [ Rx] Nitroglycerin 0.4 mg SL Q5MIN PRN #30 tab.subl 04/11/17 [Rx] Potassium Chloride 10 meq PO DAILY #30 tab.er.prt 04/11/17 [Rx] Allergies/Adverse Reactions: Allergies ciprofloxacin [From Cipro] Allergy (Verified 12/05/15 09:04) Rash fesoterodine [From Toviaz] Allergy (Verified 12/05/15 09:04) Rash ibuprofen Allergy (Verified 12/05/15 09:04) See Comments Iodinated Contrast- Oral and IV Dye Allergy (Verified 12/06/15 15:07) Pt reports he had a heart attack after receiving IV contrast Penicillins [PCN] Allergy (Verified 12/05/15 09:04) Rash Sulfa (Sulfonamide Antibiotics) Allergy (Verified 12/05/15 09:04) Difficulty Swallowing simvastatin Adverse Reaction (Verified 12/05/15 09:04) Gastrointestinal Upset Procedures/tests Complete & Pending: Procedures Performed prior 72 hours Category Date Time Status CL Cardiac Catheterization [CL] Routine Net Applications Developer 04/09/17 10:30 Completed Date of admission: 04/07/17 00:20 Primary care physician: Mildred Chu, Consults: 04/07/17 01:42 Consult to Cardiology [CONS] Routine Comment: Consulting Provider: Cardiology Cad[facility] Reason for Consult: CAD, Acute exacerbation of CHF Call Completed: No 04/07/17 10:27 Consult to Nephrology [CONS] Routine Consulting Provider: Kidney Cadence/ERMIAS/PAULETTE/RUDDY Reason for Consult: CKD--needs [facility] Call Completed: Yes 04/08/17 08:32 Consult to Palliative Care [CONS] Routine Comment: Consulting Provider: Palliative Care [facility] Reason for Consult: DNR-CCADNI Call Completed: Yes 04/08/17 08:45 Consult to Palliative Care [CONS] Routine Comment: Consulting Provider: Palliative Care [facility] Reason for Consult: pt wishes nothing else to be done. pt has an ef of 15%. also has had a heart attack very recently. Time Notified: 08:47 Call Completed: Yes Consult to Pastoral Services [CONS] Routine Comment: 04/08/17 08:55 Consult to [employer] Charger Assembler [CONS] Routine Reason for SW Consult: home with bipap and oxygen 04/11/17 08:09 Consult to Physical Therapy [CONS] Routine Comment: Evaluate, develop and implement POC Reason for Consult: weakness OT [Consult to Occupational Therapy] [CONS] Routine Comment: Evaluate, develop and implement POC Reason for Consult: Weakness Discharging clinician: Tenzin Christianson Anticipated date of discharge: 04/11/17 - Patient Status Disposition: Transfer Inpatient Rehab Fac Condition: Fair Functional capacity at discharge: wheelchair bound Overall status at discharge: patient is progressing back to baseline - Discharge Instructions Instructions: Acute Respiratory Distress Syndrome (DC), Acute Kidney Injury (DC ), Acute Kidney Injury (GEN), Pneumonia (DC) Follow Up With: Mildred Chu MD [Primary Care Provider] - 04/22/17 1:30 pm Juarez Lua DO [Partnered Physician] - Additional Instructions: pcp requested - Diet and Activity Activity: as per physical therapy Diet: low fat, low cholesterol, low salt diet Interval History: 85-year-old male presents to daily and controlled with chief complaint shortness of breath worsening for the past 2 days and increasing productive cough and sputum which is changing color from yellow to orange. Patient patient was being treated for pneumonia with azithromycin and steroid pack. However his symptoms not improved. Patient denies chest pain, fever, nausea, vomiting, chills, syncope. He uses 2 L of oxygen at home and CPAP at night. Patient had leukocytosis of 22.8 and a heart rate of 114 and troponin of 2.46. She was transferred [facility] for further evaluation and treatment. Hospital course: Patient admitted for NSTEMI. TTE 04/07/17: LVEF 15-20%, severe global hypokinesis with regional variations, mild to moderate MR, mild TR, moderate PH. No prior echo for review. 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 Patient had BRENDAN on CKD with Scr 1.74 (baseline 1.3,1.5). Furthermore, he was started on heparin drip but had bloody sputum production and this was stopped. He had volume overload on exam and IVF were stopped. Furhtermore, patient was started on vanc and zosyn for sepsis 2nd to CAP. Cardiology had long discussion with patient as he was DNR/DNI, with acute CHF exacerbation, and BRENDAN for undergoing LHC. Initially medical management was recommended. Nephrology consulted to manage BRENDAN. IVF d/c due to low EF and CHF exacerbation. Over next 24 hours, family and patient decided to under go LHC. Patients serum creatinine improved and nephrology cleared patient to tolerate procedure. LHC: Found: "severe three vessel coronary artery disease, S/P CABG 1 of 2 patent bypass grafts, Severe left main-proximal and mid LAD stenosis (90%) as well as SVG OM" Cardiology recommended: medical theraphy and consider high risk PCI left main: LAD and SVG OM. Family decided against undergoing PCI. Patient was continued on aspirin, atorvastatin, lasix, metoprolol. Started on imdur. Patients leukocytosis, sob improved with treated of IV antibiotics Vancomycin for 3 days and cefepime (4 days). He is using 3L O2 daily and CPAP at night. PT/OT consulted and awaiting placement for patient for rehab. Patient is tolerating his diet, and is aware of the plan of care after discharge. Plan: Continue metoprolol. Start lasix 20mg daily. D/c aldactone as starting lasix. Continue aspirin, statin, and Imdur. Levaquin 750mg Daily for 2 days. Follow up with cardiology and PCP outpatient - Time Spent with Patient Total time spent providing and/or coordinating discharge services: - Constitutional Vitals: Temp Pulse Resp BP Pulse Ox 98.2 F 101 18 102/65 96 04/11/17 07:01 04/11/17 07:01 04/11/17 07:01 04/11/17 07:01 04/11/17 07:01 General appearance: Present: cooperative, A&O X 3, pleasant, obese, severe distress (Severe SOB and respiratory distress), answers questions appropriately - Head Head exam: Present: atraumatic, normocephalic - Eye Eye exam: Present: PERRL, conjuntiva pink, sclera anicteric - Neck Neck exam general surgery: Present: supple, trachea midline. Absent: lymphadenopathy - Respiratory Respiratory exam: Present: CTAB. Absent: accessory muscle use, rales, rhonchi, wheezes - Cardiovascular Cardiovascular exam: Present: +S1, +S2, tachycardia. Absent: diastolic murmur, gallop, rubs, systolic murmur - GI/Abdominal GI/Abdominal exam: Present: normal bowel sounds, soft, no peritoneal signs. Absent: distended, tenderness - Extremities Exam Extremities exam: Present: warm, radial pulses palpable and symetrical. Absent : calf tenderness, cyanotic, pedal edema - Neurological Exam Neurological exam: Present: CN II-XII intact, oriented X3, no focal deficits. Absent: pronater drift, facial droop, speech deficit - Skin Skin exam: Present: dry, intact - VTE Documentation of Mechanical Device: Graduated compression elastic hosiery <Matthias Vaca P - Last Filed: 04/11/17 17:30> Date of Encounter: 04/11/17 Procedures/tests Complete & Pending: Procedures Performed prior 72 hours Category Date Time Status CL Cardiac Catheterization [CL] Routine Net Applications Developer 04/09/17 10:30 Completed ECG 12 lead ECG [ECG] Routine Y 04/11/17 04:36 Completed Date of admission: 04/07/17 00:20 Primary care physician: Mildred Chu, Consults: 04/07/17 01:42 Consult to Cardiology [CONS] Routine Comment: Consulting Provider: Cardiology [facility] Reason for Consult: CAD, Acute exacerbation of CHF Call Completed: No 04/07/17 10:27 Consult to Nephrology [CONS] Routine Consulting Provider: Kidney [facility]/ERMIAS/PAULETTE/RUDDY Reason for Consult: CKD--needs [facility] Call Completed: Yes 04/08/17 08:32 Consult to Palliative Care [CONS] Routine Comment: Consulting Provider: Palliative Care [facility] Reason for Consult: DNR-CCADNI Call Completed: Yes 04/08/17 08:45 Consult to Palliative Care [CONS] Routine Comment: Consulting Provider: Palliative Care [facility] Reason for Consult: pt wishes nothing else to be done. pt has an ef of 15%. also has had a heart attack very recently. Time Notified: 08:47 Call Completed: Yes Consult to Pastoral Services [CONS] Routine Comment: 04/08/17 08:55 Consult to [employer] Assembler [CONS] Routine Reason for SW Consult: home with bipap and oxygen 04/11/17 08:09 Consult to Physical Therapy [CONS] Routine Comment: Evaluate, develop and implement POC Reason for Consult: weakness OT [Consult to Occupational Therapy] [CONS] Routine Comment: Evaluate, develop and implement POC Reason for Consult: Weakness Hospital course: Mr. Pineda is a 86 year old male - Time Spent with Patient Total time spent providing and/or coordinating discharge services: - Constitutional Vitals: Temp Pulse Resp BP Pulse Ox 98.3 F 99 18 109/94 98 04/11/17 15:25 04/11/17 15:25 04/11/17 15:25 04/11/17 15:25 04/11/17 15:25 - Attending Attestation I examined this patient and my medical decision-making was reviewed with the TRAIN DISPATCHER/PA/Advanced Practice Nurse/Resident Physician. I agree with the documented findings, disposition and treatment plan as described except to the extent set forth below. Appreciated PT/OT input medically clear awaiting placement.
--- NOTE | 2017-04-11 14:50 | Physician Discharge Referral ---
<Tenzin Christianson - Last Filed: 04/11/17 14:48> [facility] Referral Info Provider in Charge: Dr. Vaca Provider in Charge after Transfer: PCP Institutional Level of Care: [facility] - MR - Diagnosis (1) NSTEMI (non-ST elevated myocardial infarction) Priority: Primary Status: Acute (2) Community acquired pneumonia Priority: Secondary Status: Acute (3) Sepsis Priority: Secondary Status: Resolved (4) Acute respiratory failure with hypoxia Priority: Secondary Status: Resolved (5) Acute on chronic renal failure Priority: Secondary Status: Resolved (6) Acute CHF (congestive heart failure) Priority: Secondary Status: Acute Expected Duration of Placement: 2 weeks Prognosis: Poor Aware of Diagnosis: Patient, Family Aware of Prognosis: Patient, Family - Transfer Medications Prescriptions: Nitroglycerin 0.4 mg SL Q5MIN PRN #30 tab.subl PRN Reason: Chest Pain Furosemide [Lasix] 20 mg PO DAILY #30 tablet Isosorbide MONOnitrate (24 HR) [Imdur] 60 mg PO DAILY #30 tab.er.24h Metoprolol XL (24 HR) Succ [Toprol Xl] 50 mg PO DAILY #30 tab.er.24h Potassium Chloride 10 meq PO DAILY #30 tab.er.prt Home Medications: Albuterol Sulfate 2.5 mg IH Q4H PRN 04/06/17 [History] Aspirin 81 mg PO DAILY 04/06/17 [History] Atorvastatin [Lipitor] 40 mg PO HS 04/06/17 [History] Budesonide [Rhinocort Allergy] 1 spray NS BID 04/06/17 [History] Carbidopa/Levodopa [Carbidopa-Levodopa 25-100 Tab] 1 tab PO QID 04/06/17 [ History] Cholecalciferol (Vitamin D3) [Vitamin D3] 5,000 unit PO DAILY 04/06/17 [History] Ipratropium [place] 2 spray NS BID 04/06/17 [History] Nitroglycerin [Nitrostat] 0.4 mg SL AD 04/06/17 [History] Potassium Citrate [Urocit-K] 10 meq PO QID 04/06/17 [History] Allopurinol [Zyloprim 100 MG] 100 mg PO DAILY 04/07/17 [History] Furosemide [Lasix] 20 mg PO DAILY #30 tablet 06/02/17 [Rx] Isosorbide MONOnitrate (24 HR) [Imdur] 60 mg PO DAILY #30 tab.er.24h 04/11/17 [ Rx] Metoprolol XL (24 HR) Succ [Toprol Xl] 50 mg PO DAILY #30 tab.er.24h 04/11/17 [ Rx] Nitroglycerin 0.4 mg SL Q5MIN PRN #30 tab.subl 04/11/17 [Rx] Potassium Chloride 10 meq PO DAILY #30 tab.er.prt 04/11/17 [Rx] Allergies/Adverse Reactions: Allergies ciprofloxacin [From Cipro] Allergy (Verified 12/05/15 09:04) Rash fesoterodine [From Toviaz] Allergy (Verified 12/05/15 09:04) Rash ibuprofen Allergy (Verified 12/05/15 09:04) See Comments Iodinated Contrast- Oral and IV Dye Allergy (Verified 12/06/15 15:07) Pt reports he had a heart attack after receiving IV contrast Penicillins [PCN] Allergy (Verified 12/05/15 09:04) Rash Sulfa (Sulfonamide Antibiotics) Allergy (Verified 12/05/15 09:04) Difficulty Swallowing simvastatin Adverse Reaction (Verified 12/05/15 09:04) Gastrointestinal Upset - Respiratory Orders Oxygen / L per min (3) Smoking Cessation: Smoking cessation has been advised. For more information, call the [employer] at 6-221-BQPU-NOW. - Ancillary Orders May use pressure relief devices daily prn - Advance Directives Power of Developer Advocate: Yes Code Status: DNR-Arrest/Don't Intubate - Mobility Orders Bedrest - Rehabiliation Orders Rehab Potential: Fair Rehab Orders: ROM Exercises, Evaluation for Physical Therapy, Evaluation for Occupational Therapy - Treatments Skin tear care topically daily PRN per policy - Diet Orders Cardiac CERTIFICATION: I certify that the transfer of the above named patient to an Extended Care Facility is necessary for the continuing treatment of the diagnosis listed. The above information is true and accurate reflection of patient's current condition. Confidential - Redisclosure prohibited without a patient's written consent. <Matthias Vaca P - Last Filed: 04/11/17 17:31> - Respiratory Orders Smoking Cessation: Smoking cessation has been advised. For more information, call the [employer] at 4-995-ENHN-NOW. CERTIFICATION: I certify that the transfer of the above named patient to an Extended Care Facility is necessary for the continuing treatment of the diagnosis listed. The above information is true and accurate reflection of patient's current condition. Confidential - Redisclosure prohibited without a patient's written consent.
[2017-04-11] MEDS: Bisacodyl 10 MG RECTAL SUPPOSITORY RC PRN (20:32)
[2017-04-11] MEDS: Melatonin 3 MG TABLET PO PRN (20:36)
[2017-04-12] MEDS: Fluticasone Propionate Nasal 50 MCG/SPRAY BOTTLE NS SCH ×3 (03:33→20:01)
[2017-04-12] MEDS: Cefepime HCl 2,000 MG in D5% in Water (Mini-Bag+) 100 ML IVPB SCH (03:43)
[2017-04-12 04:57] LABS: Basophils % 0.2 %; Eosinophils # 0.3 K/mcL (0.0-0.6); Eosinophils % 2.5 %; Hematocrit 39.3 % (37.5-50.1); Hemoglobin 12.2 g/dL (12.9-16.9); Immature Granulocytes % 0.9 % (0-4); Lymphocytes % 7.6 %; Mean Corpuscular Hemoglobin 30.3 pg (28.0-33.3); Mean Corpuscular Volume 97.5 fL (83.0-100.0); Mean Platelet Volume 9.7 fL (9.4-12.4); Monocytes # 1.1 K/mcL (0.0-1.3); Monocytes % 8.3 %; Neutrophils # 10.2 K/mcL (1.6-8.9); Platelet Count 226 K/mcL (140-400); Red Blood Count 4.03 M/mcL (4.19-5.50); Red Cell Distribution Width 13.7 % (11.5-14.5); Segmented Neutrophils % 80.5 %
[2017-04-12 05:13] LABS: BUN/Creatinine Ratio 25 (6-26); Blood Urea Nitrogen 31 mg/dL (8-26); Calcium 8.4 mg/dL (8.6-10.8); Carbon Dioxide 22 mEq/L (19-29); Chloride 108 mEq/L (98-109); Glucose 116 mg/dL (70-99); Osmolality,Calculated 296 (280-300); Potassium 4.3 mEq/L (3.5-4.5); Sodium 139 mEq/L (136-145); eGFR For African Americans > 60 (> 60); eGFR For Non-African Americans 55 (> 60)
[2017-04-12] MEDS: Isosorbide MONOnitrate (24 HR) 30 MG TAB.ER.24H PO SCH (10:34)
[2017-04-12] MEDS: Cholecalciferol (D-3) 1,000 UNIT TABLET PO SCH (10:35)
[2017-04-12] MEDS: Metoprolol XL (24 HR) Succ 25 MG TAB.ER.24H PO SCH (10:35)
[2017-04-12] MEDS: Furosemide 20 MG TABLET PO SCH (10:35)
[2017-04-12] MEDS: Carbidopa/Levodopa 25/100 TABLET PO SCH ×4 (10:35→20:00)
[2017-04-12] MEDS: Aspirin 81 MG TAB.CHEW PO SCH (10:35)
--- NOTE | 2017-04-12 11:15 | Event Note ---
Date of Encounter: 04/12/17 Time of Encounter: 11:13 86/M Patient admitted with chest pain. Underwent coronary angiography. Family decided to go for rehabilitation/palliative care in view of complex underlying cardiac issues. Plan: Patient has been discharged yesterday. Medically clear Awaiting for placement.
--- NOTE | 2017-04-12 12:48 | Electrocardiograph Report ---
[address] [place] [address] Test Date: 2017-04-11 Pat Name: Jim Pineda Department: 111 Room: 2N8 Gender: Sanitary Aide: NILS : 1930 Requested By: Matthias Vaca Order Number: [id number] Reading MD: Tang Patton MD Measurements Intervals [place] Rate: 100 P: 16 ID: 168 QRS: 143 QRSD: 160 T: -21 QT: 400 QTc: 457 Interpretive Statements SINUS TACHYCARDIA INTRAVENTRICULAR CONDUCTION DELAY ANTEROLATERAL MYOCARDIAL INFARCTION, OF INDETERMINATE AGE Electronically Signed On 04-12-2017 12:47:13 EDT by Tang Patton MD
[2017-04-12] MEDS: Bisacodyl 10 MG RECTAL SUPPOSITORY RC PRN (15:03)
[2017-04-12] MEDS: Melatonin 3 MG TABLET PO PRN (20:01)
[2017-04-13] MEDS: Cefepime HCl 2,000 MG in D5% in Water (Mini-Bag+) 100 ML IVPB SCH (03:10)
[2017-04-13] MEDS ORDERED: SODIUM CHLORIDE/NAHCO3/KCL/PEG 4,000 ML SOLN.RECON PO ONE (07:41)
--- NOTE | 2017-04-13 07:44 | Event Note ---
<Tenzin Christianson - Last Filed: 04/13/17 07:43> Date of Encounter: 04/13/17 Time of Encounter: 07:43 NO acute events overnight patient is medically cleared. awaiting placement. <Matthias Vaca - Last Filed: 04/13/17 09:09> Date of Encounter: 04/13/17 I examined this patient and my medical decision-making was reviewed with the LEAVE COORDINATOR/PA/Advanced Practice Nurse/Resident Physician. I agree with the documented findings, disposition and treatment plan as described except to the extent set forth below. patient is constipated and recommended MiraLAX
[2017-04-13] MEDS: Furosemide 20 MG TABLET PO SCH (08:15)
[2017-04-13] MEDS: Isosorbide MONOnitrate (24 HR) 30 MG TAB.ER.24H PO SCH (08:15)
[2017-04-13] MEDS: Metoprolol XL (24 HR) Succ 25 MG TAB.ER.24H PO SCH (08:15)
[2017-04-13] MEDS: Aspirin 81 MG TAB.CHEW PO SCH (08:15)
[2017-04-13] MEDS: Cholecalciferol (D-3) 1,000 UNIT TABLET PO SCH (08:15)
[2017-04-13] MEDS: Carbidopa/Levodopa 25/100 TABLET PO SCH ×4 (08:15→20:22)
[2017-04-13] MEDS: Fluticasone Propionate Nasal 50 MCG/SPRAY BOTTLE NS SCH ×2 (08:15→23:08)
[2017-04-13] MEDS ORDERED: MOM Conc 10 ML UD.LIQ PO PRN (13:14)
[2017-04-13] MEDS: Melatonin 3 MG TABLET PO PRN (20:22)
[2017-04-14] MEDS: Cefepime HCl 2,000 MG in D5% in Water (Mini-Bag+) 100 ML IVPB SCH (02:26)
[2017-04-14] MEDS: Ondansetron 4 MG/2 ML VIAL IVP PRN (02:54)
[2017-04-14] MEDS: Cholecalciferol (D-3) 1,000 UNIT TABLET PO SCH (08:04)
[2017-04-14] MEDS: Carbidopa/Levodopa 25/100 TABLET PO SCH ×4 (08:04→20:14)
[2017-04-14] MEDS: Isosorbide MONOnitrate (24 HR) 30 MG TAB.ER.24H PO SCH (08:04)
[2017-04-14] MEDS: Fluticasone Propionate Nasal 50 MCG/SPRAY BOTTLE NS SCH ×2 (08:04→20:14)
[2017-04-14] MEDS: Furosemide 20 MG TABLET PO SCH (08:05)
[2017-04-14] MEDS: Aspirin 81 MG TAB.CHEW PO SCH (08:05)
[2017-04-14] MEDS: Metoprolol XL (24 HR) Succ 25 MG TAB.ER.24H PO SCH (08:05)
--- NOTE | 2017-04-14 09:16 | Event Note ---
<Hai Strong - Last Filed: 04/14/17 13:25> Date of Encounter: 04/14/17 Time of Encounter: 09:16 NO acute events overnight patient is medically cleared. awaiting placement. <Matthias Vaca - Last Filed: 04/14/17 16:33> Date of Encounter: 04/14/17 I examined this patient and my medical decision-making was reviewed with the JUKEBOX CHECKER/PA/Advanced Practice Nurse/Resident Physician. I agree with the documented findings, disposition and treatment plan as described except to the extent set forth below.
[2017-04-14] MEDS: Melatonin 3 MG TABLET PO PRN (20:25)
[2017-04-14] MEDS: Ipratropium/Albuterol Neb 3 ML IH PRN (20:39)
--- NOTE | 2017-04-15 07:56 | Event Note ---
<Hai Strong - Last Filed: 04/15/17 11:29> Date of Encounter: 04/15/17 Time of Encounter: 07:56 NO acute events overnight patient is medically cleared. awaiting placement. <Bruno Sanders - Last Filed: 04/15/17 16:53> Date of Encounter: 04/15/17 Mr. Pineda is complaining of some nausea. Still with some hemoptysis. No fever or chills. Not sleeping well and would like something else to sleep. He is awaiting SNF placement and precert. He remains moderate risk due to potential for worsening respiratory status. Exam Alert. Comfortable Mucus membranes dry Heart reg Lungs clear Abd soft and nontender No edema noted at time of exam Labs reviewed I/P 1. Acute NSTEMI - elected for medical management. Awaiting placement in SNF 2. CAD - continuing BB, ASA, statin, lasix. Will add BOBBY if able. 3. Acute on chronic systolic CHF - tolerated diuresis 4. Insomnia - add med 5. Nausea 6. Hemoptysis - following. H/H has been stable.
[2017-04-15] MEDS: Fluticasone Propionate Nasal 50 MCG/SPRAY BOTTLE NS SCH ×2 (09:12→22:38)
[2017-04-15] MEDS: Aspirin 81 MG TAB.CHEW PO SCH (09:12)
[2017-04-15] MEDS: Isosorbide MONOnitrate (24 HR) 30 MG TAB.ER.24H PO SCH (09:13)
[2017-04-15] MEDS: Metoprolol XL (24 HR) Succ 25 MG TAB.ER.24H PO SCH (09:13)
[2017-04-15] MEDS: Furosemide 20 MG TABLET PO SCH (09:13)
[2017-04-15] MEDS: Carbidopa/Levodopa 25/100 TABLET PO SCH ×4 (09:13→22:35)
[2017-04-15] MEDS: Cholecalciferol (D-3) 1,000 UNIT TABLET PO SCH (09:14)
[2017-04-15] MEDS: Ondansetron 4 MG/2 ML VIAL IVP PRN (15:32)
[2017-04-16] MEDS: Albuterol 2.5 MG/3 ML NEBULIZER IH PRN (03:52)
[2017-04-16 04:34] LABS: Hematocrit 39.1 % (37.5-50.1); Hemoglobin 12.4 g/dL (12.9-16.9); Mean Corpuscular HGB Conc 31.7 g/dL (31.6-35.5); Mean Corpuscular Hemoglobin 30.2 pg (28.0-33.3); Mean Corpuscular Volume 95.1 fL (83.0-100.0); Mean Platelet Volume 9.7 fL (9.4-12.4); Platelet Count 255 K/mcL (140-400); Red Blood Count 4.11 M/mcL (4.19-5.50); Red Cell Distribution Width 13.4 % (11.5-14.5)
[2017-04-16 04:56] LABS: BUN/Creatinine Ratio 17 (6-26); Blood Urea Nitrogen 21 mg/dL (8-26); Calcium 8.8 mg/dL (8.6-10.8); Carbon Dioxide 28 mEq/L (19-29); Chloride 105 mEq/L (98-109); Glucose 105 mg/dL (70-99); Osmolality,Calculated 295 (280-300); Potassium 3.8 mEq/L (3.5-4.5); Sodium 141 mEq/L (136-145); eGFR For African Americans > 60 (> 60); eGFR For Non-African Americans 57 (> 60)
--- NOTE | 2017-04-16 08:06 | Event Note ---
Date of Encounter: 04/16/17 Time of Encounter: 08:06
[2017-04-16 11:41] VITALS: BP 110/69
--- NOTE | 2017-04-16 12:37 | Internal Med Progress Note ---
<Hai Strong - Last Filed: 04/16/17 12:35> Date of Encounter: 04/16/17 Time of Encounter: 12:35 - Assessment and plan (1) Delirium Current Visit: Yes Status: Acute Assessment and plan: Last night patient had a delirium episode, a head CT scan showed no acute process, patient had a similar episode several nights ago and patient has been complaining insomnia recently and that could be the reason that he is having delirium, seroquel was giving last night. 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 Family decided against undergoing PCI. Patient was continued on aspirin, atorvastatin, lasix, metoprolol. Started on imdur. Patient is medically stable to be discharged, still pending placement. (3) DVT prophylaxis Current Visit: Yes Status: Acute Assessment and plan: IPC. - Subjective Interval history: Patient seen and examined. Patient was alert and oriented 2, not oriented to time. Last night patient had a delirium episode, a head CT scan was negative, no active chest pain. - Constitutional Vitals: Temp Pulse Resp BP Pulse Ox 98.1 F 88 16 110/69 93 04/16/17 11:39 04/16/17 11:39 04/16/17 11:39 04/16/17 11:39 04/16/17 11:39 General appearance: Present: cooperative, A&O X 1, pleasant, obese, answers questions appropriately - Respiratory Respiratory exam: Present: decreased breath sounds (Diffusedly bilateral). Absent: rales, rhonchi, wheezes - Cardiovascular Cardiovascular exam: Present: RRR, +S1, +S2. Absent: gallop, rubs, systolic murmur - GI/Abdominal GI/Abdominal exam: Present: normal bowel sounds, soft. Absent: distended, firm , guarding, rebound, rigid, tenderness - Extremities Exam Extremities exam: Present: normal inspection, warm, radial pulses palpable and symetrical. Absent: tenderness - Neurological Exam Neurological exam: Present: alert, CN II-XII intact, no focal deficits, strengths equal and symetr throughout. Absent: oriented X3 Internal Medicine: Result - Labs CBC & Chem 7: 04/16/17 03:56 04/16/17 03:56 Labs: Short CBC 04/16/17 Range/Units 03:56 WBC 11.0 (4.3-11.1) K/mcL Hgb 12.4 L (12.9-16.9) g/dL Hct 39.1 (37.5-50.1) % Plt Count 255 (140-400) K/mcL BMP 04/16/17 03:56 Sodium 141 Potassium 3.8 Chloride 105 Carbon Dioxide 28 BUN 21 Creatinine 1.21 Glucose 105 H Calcium 8.8 - ABG Interpretation ABG results: ABG ABG pH 7.41 pH Units (7.32-7.45) 04/07/17 15:38 ABG pCO2 37 mmHg (35-45) 04/07/17 15:38 ABG pO2 98 mmHg (85-104) 04/07/17 15:38 ABG O2 Saturation 98 % (95-98) 04/07/17 15:38 PT/INR, D-dimer PT 11.9 Seconds (9.4-12.1) 04/09/17 08:14 D-Dimer 543 ng/mLFEU (0-500) H 04/07/17 01:44 - Impressions Impressions Head CT 04/16/17 04:02 IMPRESSION: 1. Study limited by patient motion artifact. 2. No definite acute intracranial abnormality within the limitations of the study. However, if acute ischemic change remains of clinical concern, suggest further characterization with a brain MRI. 3. 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 4. Chronic paranasal sinusitis, as detailed above. 5. Mild right mastoid air cell disease. D/ / 04/16/2017 08:18:13 Jax Perez MD / [email or web address] Interpreting Provider: Jax Perez MD - VTE Documentation of Mechanical Device: Graduated compression elastic hosiery Consult Discharge Plan - Plan Instructions: Acute Respiratory Distress Syndrome (DC), Acute Kidney Injury (DC ), Acute Kidney Injury (GEN), Pneumonia (DC) Additional Instructions: pcp requested Referrals: Mildred Chu MD [Primary Care Provider] - 04/22/17 1:30 pm Juarez Lua DO [Partnered Physician] - (Office will call patient with follow up appointment ) Prescriptions: Nitroglycerin 0.4 mg SL Q5MIN PRN #30 tab.subl PRN Reason: Chest Pain Furosemide [Lasix] 20 mg PO DAILY #30 tablet Isosorbide MONOnitrate (24 HR) [Imdur] 60 mg PO DAILY #30 tab.er.24h Metoprolol XL (24 HR) Succ [Toprol Xl] 50 mg PO DAILY #30 tab.er.24h Potassium Chloride 10 meq PO DAILY #30 tab.er.prt <Bruno Sanders - Last Filed: 04/16/17 15:27> Date of Encounter: 04/16/17 - Assessment and plan (1) Non-STEMI (non-ST elevated myocardial infarction) Current Visit: Yes Status: Acute (2) Delirium Current Visit: Yes Status: Acute (3) Acute respiratory failure with hypoxia Current Visit: Yes Status: Resolved (4) Acute on chronic renal failure Current Visit: Yes Status: Resolved (5) Acute CHF (congestive heart failure) Current Visit: Yes Status: Acute Qualifiers: Congestive heart failure type: systolic Qualified Code(s): I50.21 - Acute systolic (congestive) heart failure (6) CKD (chronic kidney disease) stage 3, GFR 30-59 ml/min Current Visit: Yes Status: Acute (7) Parkinsons disease Current Visit: Yes Status: Chronic (8) Hyperlipidemia Current Visit: Yes Status: Chronic Qualifiers: Hyperlipidemia type: unspecified Qualified Code(s): E78.5 - Hyperlipidemia , unspecified - Constitutional Vitals: Temp Pulse Resp BP Pulse Ox 98.1 F 88 16 110/69 93 04/16/17 11:39 04/16/17 11:39 04/16/17 11:39 04/16/17 11:39 04/16/17 11:39 Internal Medicine: Result - Labs CBC & Chem 7: 04/16/17 03:56 04/16/17 03:56 Labs: Short CBC 04/16/17 Range/Units 03:56 WBC 11.0 (4.3-11.1) K/mcL Hgb 12.4 L (12.9-16.9) g/dL Hct 39.1 (37.5-50.1) % Plt Count 255 (140-400) K/mcL BMP 04/16/17 03:56 Sodium 141 Potassium 3.8 Chloride 105 Carbon Dioxide 28 BUN 21 Creatinine 1.21 Glucose 105 H Calcium 8.8 - ABG Interpretation ABG results: ABG ABG pH 7.41 pH Units (7.32-7.45) 04/07/17 15:38 ABG pCO2 37 mmHg (35-45) 04/07/17 15:38 ABG pO2 98 mmHg (85-104) 04/07/17 15:38 ABG O2 Saturation 98 % (95-98) 04/07/17 15:38 PT/INR, D-dimer PT 11.9 Seconds (9.4-12.1) 04/09/17 08:14 D-Dimer 543 ng/mLFEU (0-500) H 04/07/17 01:44 - Impressions Impressions Head CT 04/16/17 04:02 IMPRESSION: 1. Study limited by patient motion artifact. 2. No definite acute intracranial abnormality within the limitations of the study. However, if acute ischemic change remains of clinical concern, suggest further characterization with a brain MRI. 3. 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 4. Chronic paranasal sinusitis, as detailed above. 5. Mild right mastoid air cell disease. D/ / 04/16/2017 08:18:13 Jax Perez MD / [facility] Interpreting Provider: Jax Perez MD - Attending Attestation I examined this patient and my medical decision-making was reviewed with the Resident Physician on 04/16/17. I agree with the documented findings, disposition and treatment plan as described except to the extent set forth below. Mr. Pineda had episode of delirium last evening but has improved. He has been approved for SNF today. Exam Alert. Oriented currently. Heart reg Lungs diminished but clear. I/P 1. Delirium - improved 2. NSTEMI Plan d/c to SNF today. 35 min spent reviewing chart, meds and updating discharge information.
[2017-04-16] MEDS: Furosemide 20 MG TABLET PO SCH (14:02)
[2017-04-16] MEDS: Isosorbide MONOnitrate (24 HR) 30 MG TAB.ER.24H PO SCH (14:02)
[2017-04-16] MEDS: Cholecalciferol (D-3) 1,000 UNIT TABLET PO SCH (14:02)
[2017-04-16] MEDS: Aspirin 81 MG TAB.CHEW PO SCH (14:03)
[2017-04-16] MEDS: Metoprolol XL (24 HR) Succ 25 MG TAB.ER.24H PO SCH (14:03)
--- NOTE | 2017-04-16 18:37 | Venous Imaging Report ---
LE Venous Duplex Patient Name:Jim Pineda Order Number:[id number] Procedure Date:04/15/2017 Date:2Age:86 yrs Gender:Male Location:[facility] Room #: 2NE18 Benefit Director:Alejandrina Clements RVT Referring MD:Bruno Sanders DO demand generation manager:Mildred Guaman MD Reading MD:Hai Parks MD Primary Indications:Edema Secondary Indications: Impressions: Normal bilateral lower extremity deep and superficial venous exam. Findings Venous Duplex Results: Right: Venous imaging of the lower extremity reveals full patency and normal vessel compressibility of the right distal iliac, right common femoral, right superficial femoral, right popliteal, right posterior tibial, right peroneal, right great saphenous and right lesser saphenous. Doppler signals in the evaluated veins were normal. Left: Venous imaging of the lower extremity reveals full patency and normal vessel compressibility of the left distal iliac, left common femoral, left superficial femoral, left popliteal, left posterior tibial, left peroneal, left great saphenous and left lesser saphenous. Doppler signals in the evaluated veins were normal. Prior Study: No prior study available for comparison. Updated by Hai Parks MD on 04/16/2017 6:32:44 PM electronically signed on 04/16/2017 6:33:16 PM with status of Final
== END 2017-04-16 18:00 | DRG 871 ==
LOC: 2NENU → SUATTDRO 04-07 00:20 → 2NENU 04-11 10:59
PROVIDERS: ADMIT Internal Medicine; ATTEND Internal Medicine